=== PATIENT | male | born 1955 | race Two or more races ===

== ENCOUNTER 2016-07-28 12:02 | Inpatient (IN) | payer OTHER ==
[2016-07-28] VITALS (31 sets, daily range): BP systolic 66–124; BP diastolic 33–71
[~2016-07-28] VITALS: Ht 185.4 cm; Wt 97.5 kg
[~2016-07-28 12:02] MED LIST: ASPI81TA2 PO; FURO-145 PO; METH10TA2 PO; METO25TA6 PO; VALS40TA4 PO
[2016-07-28 12:25] LABS: MONOCYTES # (AUTO) 0.8 /CMM (0.1-1.30); RED BLOOD CELL COUNT(AUTO) 2.29 MIL/uL (4.5-6.0)
[2016-07-28] MEDS ORDERED: ONDANSETRON HCL/PF 4 MG/2 ML VIAL ONE (12:25)
[2016-07-28] MEDS ORDERED: OCTREOTIDE 100 MCG/ML VIAL ONE (12:25)
[2016-07-28] MEDS ORDERED: IV SET PRIMARY 1 EA INFUS.SET MC ONE (12:25)
[2016-07-28] MEDS ORDERED: SECONDARY IV SET 1 EA INFUS.SET MC ONE (12:25)
[2016-07-28] MEDS ORDERED: IV NS 0.9% 1,000 ML ONE (12:25)
[2016-07-28] MEDS ORDERED: CEFTRIAXONE 1GM BAG (ER ONLY) 50 ML IV ONE (12:25)
[2016-07-28 12:28] LABS: BASOPHILS # (AUTO) 0.3 /CMM (0.0-0.2); DIFF TOTAL % 100 %; EOSINOPHILS # (AUTO) 0.1 /CMM (0.0-0.7); EOSINOPHILS % (AUTO) 0.6 % (0.0-6.0); LYMPHOCYTES % (AUTO) 36.6 % (20.0-44.0); MEAN CORPUSCULAR HEMOGLOBIN 26 PG (26.0-33.0); MEAN CORPUSCULAR HGB CONC 31 g/dl (31.0-36.0); MEAN CORPUSCULAR VOLUME 83 fL (80-96); MONOCYTES % (AUTO) 6.1 % (2.0-12.0); NEUTROPHILS # (AUTO) 7.5 /CMM (1.8-8.9); NEUTROPHILS % (AUTO) 54.7 % (43.0-81.0); PLATELET COUNT (AUTO) 198 /CMM (150-450); WHITE BLOOD COUNT (AUTO) 13.7 K/uL (4.3-11.0)
[2016-07-28] MEDS ORDERED: OCTREOTIDE 1,250 MCG in IV NS 0.9% 250 ML IV ONE (12:30)
[2016-07-28] MEDS ORDERED: CEFTRIAXONE 1GM BAG (ER ONLY) 1 GM/50 ML PIGGYBACK IV ONE (12:30)
[2016-07-28] MEDS ORDERED: ONDANSETRON HCL/PF 4 MG/2 ML VIAL IVP ONE (12:30)
[2016-07-28] MEDS ORDERED: OCTREOTIDE 50 MCG/ML AMPUL IV ONE (12:30)
[2016-07-28] MEDS ORDERED: IV NS 0.9% 1,000 ML BAG IV ONE (12:30)
[2016-07-28 12:32] LABS: HEMATOCRIT 19 % (39-51); HEMOGLOBIN 5.9 g/dL (13.5-17.5)
[2016-07-28] MEDS ORDERED: VALS320T13 PO (12:35)
[2016-07-28] MEDS ORDERED: ALPR0.5T PO (12:35)
[2016-07-28] MEDS ORDERED: TRAM50TA2 PO (12:35)
[2016-07-28 12:37] LABS: CALCIUM, SERUM 7.8 mg/dL (8.5-10.1); POTASSIUM 5.8 mmol/L (3.5-5.1)
[2016-07-28 12:39] LABS: INR 1.47 (0.87-1.13); PROTHROMBIN TIME 15.4 SECS (9.5-12.7)
[2016-07-28 12:44] LABS: ALBUMIN 1.7 g/dL (3.4-5.0); BILIRUBIN,DIRECT 0.2 mg/dL (0.0-0.2); BILIRUBIN,TOTAL 0.6 mg/dL (0.2-1.0); INDIRECT BILIRUBIN 0.4 mg/dL (0.0-1.1); TOTAL PROTEIN, SERUM 5.4 g/dL (6.4-8.2)
[2016-07-28 12:48] LABS: TROPONIN I 0.036 ng/mL (0.00-0.056)
[2016-07-28] MEDS ORDERED: PANTOPRAZOLE 80 MG in IV NS 0.9% 500 ML IV PRN ×2 (13:00→15:30)
[2016-07-28 13:11] LABS: ANISOCYTOSIS 1+; HYPOCHROMASIA 1+; LYMPHOCYTES % (MANUAL) 29 % (16-48); PLATELET ESTIMATE ADEQUATE
[2016-07-28] MEDS ORDERED: IV NS 0.9% 1,000 ML IV ONE (13:30)
[2016-07-28] MEDS ORDERED: IV SET PRIMARY PUMP SET 1 EA INFUS.SET MC ONE ×2 (14:44→17:24)
[2016-07-28] MEDS ORDERED: BLOOD IV SET 1 EA INFUS.SET MC ONE (15:30)
[2016-07-28] MEDS ORDERED: OCTREOTIDE 1,250 MCG in IV NS 0.9% 247.5 ML IV PRN (15:30)
[2016-07-28] MEDS ORDERED: ACETAMINOPHEN 325 MG TABLET PO PRN (15:30)
[2016-07-28] MEDS ORDERED: ONDANSETRON HCL/PF 4 MG/2 ML VIAL IVP PRN (15:30)
[2016-07-28] MEDS ORDERED: IV NS 0.9% 250 ML IV ONE (15:31)
[2016-07-28] MEDS: PHYTONADIONE 5 MG TABLET PO SCH (16:00)
[2016-07-28] MEDS ORDERED: NOREPINEPHRINE 8 MG in IV D5W 500 ML IV PRN (16:30)
[2016-07-28] MEDS ORDERED: ALBUTEROL FS 2.5 MG/0.5 ML VIAL.NEB NEB ONE (16:30)
[2016-07-28] MEDS ORDERED: Calcium Gluconate 1GM/10ML 4.65 MEQ in IV D5W 50 ML IV ONE (16:30)
[2016-07-28] MEDS ORDERED: TRAMADOL HCL 50 MG TABLET PO PRN (16:30)
[2016-07-28] MEDS: ALPRAZOLAM 0.5 MG TABLET PO SCH (17:00)
[2016-07-28] MEDS ORDERED: FUROSEMIDE 20 MG/2 ML VIAL IV ONE (20:00)
[2016-07-28 20:16] LABS: THYROID STIMULATING HORMONE 1.662 uIU/mL (0.358-3.74)
[2016-07-28 23:53] LABS: BASOPHILS % (AUTO) 0.4 % (0.0-2.0); DIFF TOTAL % 100 %; EOSINOPHILS # (AUTO) 0.1 /CMM (0.0-0.7); HEMATOCRIT 21 % (39-51); LYMPHOCYTES # (AUTO) 4.3 /CMM (0.8-4.8); LYMPHOCYTES % (AUTO) 34.8 % (20.0-44.0); MEAN CORPUSCULAR HEMOGLOBIN 27 PG (26.0-33.0); MEAN CORPUSCULAR HGB CONC 32 g/dl (31.0-36.0); MEAN CORPUSCULAR VOLUME 83 fL (80-96); MONOCYTES # (AUTO) 1.1 /CMM (0.1-1.30); MONOCYTES % (AUTO) 9.3 % (2.0-12.0); NEUTROPHILS # (AUTO) 6.7 /CMM (1.8-8.9); NEUTROPHILS % (AUTO) 54.5 % (43.0-81.0); PLATELET COUNT (AUTO) 163 /CMM (150-450); RED BLOOD CELL COUNT(AUTO) 2.58 MIL/uL (4.5-6.0); WHITE BLOOD COUNT (AUTO) 12.3 K/uL (4.3-11.0)
[2016-07-29] VITALS (47 sets, daily range): BP systolic 109–168; BP diastolic 57–77
[2016-07-29] LABS: HEMOGLOBIN 6.9 g/dL (13.5-17.5)
[2016-07-29 00:01] LABS: CALCIUM, SERUM 7.5 mg/dL (8.5-10.1); CREATININE 1.2 mg/dL (0.6-1.3); POTASSIUM 4.5 mmol/L (3.5-5.1)
[2016-07-29] MEDS ORDERED: BLOOD IV SET 1 EA INFUS.SET MC ONE ×3 (01:09→16:36)
[2016-07-29] MEDS ORDERED: IV NS 0.9% 250 ML IV ONE ×3 (01:10→16:40)
[2016-07-29 01:11] LABS: ANISOCYTOSIS 1+; BASOPHILS % (MANUAL) 0 % (0.0-2.0); EOSINOPHILS % (MANUAL) 1 % (0-4); HYPOCHROMASIA 1+; LYMPHOCYTES % (MANUAL) 34 % (16-48); PLATELET ESTIMATE ADEQUATE
[2016-07-29] MEDS ORDERED: IV NS 0.9% 250 ML IV PRN (01:30)
[2016-07-29] MEDS ORDERED: CEFTRIAXONE 1 G VIAL IM SCH (06:00)
[2016-07-29] MEDS ORDERED: CT SWABBABLE VALVE TRANS SET 1 EA INFUS.SET MC ONE (09:02)
[2016-07-29] MEDS ORDERED: IOHEXOL-300 100 ML VIAL IV ONE (09:02)
[2016-07-29] MEDS ORDERED: IV SET PRIMARY PUMP SET 1 EA INFUS.SET MC ONE (09:51)
[2016-07-29] MEDS: ALPRAZOLAM 0.5 MG TABLET PO SCH ×2 (09:54→16:40)
[2016-07-29] MEDS: NICOTINE PATCH (21MG) 21 MG PATCH.TD24 TD SCH (09:54)
[2016-07-29] MEDS: PHYTONADIONE 5 MG TABLET PO SCH ×2 (09:54→09:58)
[2016-07-29] MEDS: MULTIVITAMINS,THERAPEUTIC 1 UDTAB TABLET PO SCH (09:54)
[2016-07-29] MEDS ORDERED: SECONDARY IV SET 1 EA INFUS.SET MC ONE ×3 (10:27→13:43)
[2016-07-29] MEDS: Thiamine 100 MG in IV D5W 50 ML IV SCH (10:31)
[2016-07-29] MEDS: IV NS 0.9% 1,000 ML IV PRN (11:14)
[2016-07-29] MEDS ORDERED: Z GUARD REMEDY 2 OZ OINT TP PRN (11:30)
[2016-07-29 11:39] LABS: BASOPHILS % (AUTO) 0.4 % (0.0-2.0); DIFF TOTAL % 100 %; EOSINOPHILS # (AUTO) 0.2 /CMM (0.0-0.7); EOSINOPHILS % (AUTO) 1.6 % (0.0-6.0); HEMATOCRIT 26 % (39-51); HEMOGLOBIN 8.4 g/dL (13.5-17.5); LYMPHOCYTES # (AUTO) 3.7 /CMM (0.8-4.8); LYMPHOCYTES % (AUTO) 32.2 % (20.0-44.0); MEAN CORPUSCULAR HEMOGLOBIN 27 PG (26.0-33.0); MEAN CORPUSCULAR HGB CONC 32 g/dl (31.0-36.0); MEAN CORPUSCULAR VOLUME 84 fL (80-96); MONOCYTES # (AUTO) 0.9 /CMM (0.1-1.30); MONOCYTES % (AUTO) 7.6 % (2.0-12.0); NEUTROPHILS # (AUTO) 6.7 /CMM (1.8-8.9); NEUTROPHILS % (AUTO) 58.2 % (43.0-81.0); PLATELET COUNT (AUTO) 135 /CMM (150-450); RED BLOOD CELL COUNT(AUTO) 3.09 MIL/uL (4.5-6.0); WHITE BLOOD COUNT (AUTO) 11.5 K/uL (4.3-11.0)
[2016-07-29 11:50] LABS: ALBUMIN 1.9 g/dL (3.4-5.0); BILIRUBIN,TOTAL 0.9 mg/dL (0.2-1.0); CALCIUM, SERUM 7.5 mg/dL (8.5-10.1); CREATININE 1.1 mg/dL (0.6-1.3); PHOSPHORUS 3.6 mg/dL (2.5-4.9); POTASSIUM 3.9 mmol/L (3.5-5.1); TOTAL PROTEIN, SERUM 5.4 g/dL (6.4-8.2)
[2016-07-29 11:55] LABS: INR 1.4 (0.87-1.13); PROTHROMBIN TIME 15.2 SECS (9.5-12.7)
[2016-07-29] MEDS ORDERED: PEG 3350/NA SULF,BICARB,CL/KCL 4,000 ML BOTTLE PO ONE ×2 (12:00→20:30)
[2016-07-29] MEDS: CEFTRIAXONE 1 G in IV D5W 50 ML IV SCH (12:19)
[2016-07-29] MEDS: Z GUARD REMEDY 2 OZ OINT TP SCH ×2 (13:04→16:36)
[2016-07-29] MEDS: HYDROGEL DRESSING 90 GM TUBE TP SCH (13:04)
[2016-07-29] MEDS: Magnesium 1GM/D5W 100ML PREMIX 100 ML IV SCH ×2 (13:48→14:56)
[2016-07-29] MEDS ORDERED: Magnesium 1GM/D5W 100ML PREMIX PIGGYBACK IV ONE (14:00)
[2016-07-29] MEDS: FOLIC ACID 1 MG TABLET PO SCH (16:28)
[2016-07-29] MEDS: PANTOPRAZOLE 40 MG VIAL IV SCH (16:28)
[2016-07-29] MEDS: CYANOCOBALAMIN 1,000 MCG/ML VIAL IM SCH (16:28)
[2016-07-29] MEDS: NEOMY SULF/BACITRAC ZN/POLY 15 GM TUBE TP SCH (16:36)
[2016-07-30] VITALS (56 sets, daily range): BP systolic 101–142; BP diastolic 56–85
[2016-07-30] MEDS ORDERED: BLOOD IV SET 1 EA INFUS.SET MC ONE ×3 (01:09→20:17)
[2016-07-30 05:58] LABS: BASOPHILS # (AUTO) 0.1 /CMM (0.0-0.2); BASOPHILS % (AUTO) 2.2 % (0.0-2.0); DIFF TOTAL % 100 %; EOSINOPHILS # (AUTO) 0.2 /CMM (0.0-0.7); EOSINOPHILS % (AUTO) 3.6 % (0.0-6.0); HEMATOCRIT 23 % (39-51); HEMOGLOBIN 7.6 g/dL (13.5-17.5); LYMPHOCYTES # (AUTO) 2.2 /CMM (0.8-4.8); LYMPHOCYTES % (AUTO) 36.7 % (20.0-44.0); MEAN CORPUSCULAR HEMOGLOBIN 28 PG (26.0-33.0); MEAN CORPUSCULAR HGB CONC 33 g/dl (31.0-36.0); MEAN CORPUSCULAR VOLUME 85 fL (80-96); MONOCYTES # (AUTO) 0.6 /CMM (0.1-1.30); MONOCYTES % (AUTO) 9.5 % (2.0-12.0); NEUTROPHILS # (AUTO) 2.9 /CMM (1.8-8.9); PLATELET COUNT (AUTO) 103 /CMM (150-450); RED BLOOD CELL COUNT(AUTO) 2.71 MIL/uL (4.5-6.0); WHITE BLOOD COUNT (AUTO) 6.1 K/uL (4.3-11.0)
[2016-07-30 06:00] LABS: POTASSIUM 3.4 mmol/L (3.5-5.1)
[2016-07-30 06:03] LABS: INR 1.24 (0.87-1.13); PROTHROMBIN TIME 13.4 SECS (9.5-12.7)
[2016-07-30] MEDS: HYDROGEL DRESSING 90 GM TUBE TP SCH (08:34)
[2016-07-30] MEDS: Z GUARD REMEDY 2 OZ OINT TP SCH ×2 (08:34→16:53)
[2016-07-30] MEDS: NEOMY SULF/BACITRAC ZN/POLY 15 GM TUBE TP SCH ×2 (08:35→17:02)
[2016-07-30] MEDS: NICOTINE PATCH (21MG) 21 MG PATCH.TD24 TD SCH (08:37)
[2016-07-30] MEDS: PANTOPRAZOLE 40 MG VIAL IV SCH (08:37)
[2016-07-30] MEDS: CYANOCOBALAMIN 1,000 MCG/ML VIAL IM SCH (08:37)
[2016-07-30] MEDS: MULTIVITAMINS,THERAPEUTIC 1 UDTAB TABLET PO SCH (08:37)
[2016-07-30] MEDS: ALPRAZOLAM 0.5 MG TABLET PO SCH ×2 (08:37→17:02)
[2016-07-30] MEDS: FOLIC ACID 1 MG TABLET PO SCH (08:39)
[2016-07-30] MEDS: PHYTONADIONE 5 MG TABLET PO SCH (09:18)
[2016-07-30] MEDS: Thiamine 100 MG in IV D5W 50 ML IV SCH (10:27)
[2016-07-30 11:54] LABS: HEMOGLOBIN 7.3 g/dL (13.5-17.5)
[2016-07-30] MEDS ORDERED: IV NS 0.9% 250 ML IV ONE (13:40)
[2016-07-30] MEDS ORDERED: SECONDARY IV SET 1 EA INFUS.SET MC ONE (13:42)
[2016-07-30] MEDS: POTASSIUM CL. PREMIX PERIPHER. 50 ML IV SCH ×2 (13:48→15:41)
[2016-07-30] MEDS: CEFTRIAXONE 1 G in IV D5W 50 ML IV SCH (13:48)
[2016-07-31] VITALS (21 sets, daily range): BP systolic 113–150; BP diastolic 68–86
[2016-07-31 01:42] LABS: HEMOGLOBIN 10.5 g/dL (13.5-17.5)
[2016-07-31 04:59] LABS: BASOPHILS % (AUTO) 0.4 % (0.0-2.0); DIFF TOTAL % 100 %; EOSINOPHILS # (AUTO) 0.3 /CMM (0.0-0.7); EOSINOPHILS % (AUTO) 4.7 % (0.0-6.0); HEMATOCRIT 30 % (39-51); HEMOGLOBIN 10.1 g/dL (13.5-17.5); LYMPHOCYTES # (AUTO) 1.6 /CMM (0.8-4.8); LYMPHOCYTES % (AUTO) 26.9 % (20.0-44.0); MEAN CORPUSCULAR HEMOGLOBIN 29 PG (26.0-33.0); MEAN CORPUSCULAR HGB CONC 33 g/dl (31.0-36.0); MEAN CORPUSCULAR VOLUME 87 fL (80-96); MONOCYTES # (AUTO) 0.4 /CMM (0.1-1.30); MONOCYTES % (AUTO) 7.5 % (2.0-12.0); NEUTROPHILS # (AUTO) 3.5 /CMM (1.8-8.9); NEUTROPHILS % (AUTO) 60.5 % (43.0-81.0); PLATELET COUNT (AUTO) 103 /CMM (150-450); RED BLOOD CELL COUNT(AUTO) 3.48 MIL/uL (4.5-6.0); WHITE BLOOD COUNT (AUTO) 5.8 K/uL (4.3-11.0)
[2016-07-31 05:16] LABS: CREATININE 0.8 mg/dL (0.6-1.3); POTASSIUM 3.6 mmol/L (3.5-5.1)
[2016-07-31 05:18] LABS: INR 1.29 (0.87-1.13)
[2016-07-31] MEDS: CYANOCOBALAMIN 1,000 MCG/ML VIAL IM SCH (08:05)
[2016-07-31] MEDS: Z GUARD REMEDY 2 OZ OINT TP SCH ×2 (08:06→16:12)
[2016-07-31] MEDS: PANTOPRAZOLE 40 MG VIAL IV SCH (08:06)
[2016-07-31] MEDS: NICOTINE PATCH (21MG) 21 MG PATCH.TD24 TD SCH (08:06)
[2016-07-31] MEDS: ALPRAZOLAM 0.5 MG TABLET PO SCH ×2 (08:06→16:11)
[2016-07-31] MEDS: MULTIVITAMINS,THERAPEUTIC 1 UDTAB TABLET PO SCH (08:06)
[2016-07-31] MEDS: HYDROGEL DRESSING 90 GM TUBE TP SCH (08:06)
[2016-07-31] MEDS: FOLIC ACID 1 MG TABLET PO SCH (08:06)
[2016-07-31] MEDS: NEOMY SULF/BACITRAC ZN/POLY 15 GM TUBE TP SCH ×2 (08:06→16:12)
[2016-07-31] MEDS: IV NS 0.9% 1,000 ML IV PRN (08:09)
[2016-07-31] MEDS: THIAMINE HCL 100 MG TABLET PO SCH (09:41)
[2016-07-31] MEDS ORDERED: POTASSIUM CHLORIDE 20 MEQ TAB.PRT.SR PO ONE (16:00)
[2016-07-31] MEDS ORDERED: PEG 3350/NA SULF,BICARB,CL/KCL 4,000 ML BOTTLE PO ONE (20:00)
[2016-08-01] VITALS: BP 159/88
[2016-08-01] MEDS: LORAZEPAM INJ 2 MG/ML VIAL IV PRN ×2 (00:51→22:53)
[2016-08-01] MEDS: IV NS 0.9% 1,000 ML IV PRN (01:03)
[2016-08-01 04:00] VITALS: BP 156/83
[2016-08-01 06:59] LABS: BASOPHILS % (AUTO) 0.4 % (0.0-2.0); DIFF TOTAL % 100 %; EOSINOPHILS # (AUTO) 0.4 /CMM (0.0-0.7); EOSINOPHILS % (AUTO) 6.3 % (0.0-6.0); HEMATOCRIT 35 % (39-51); HEMOGLOBIN 11.4 g/dL (13.5-17.5); LYMPHOCYTES # (AUTO) 1.7 /CMM (0.8-4.8); LYMPHOCYTES % (AUTO) 30.3 % (20.0-44.0); MEAN CORPUSCULAR HEMOGLOBIN 29 PG (26.0-33.0); MEAN CORPUSCULAR HGB CONC 33 g/dl (31.0-36.0); MEAN CORPUSCULAR VOLUME 87 fL (80-96); MONOCYTES # (AUTO) 0.5 /CMM (0.1-1.30); MONOCYTES % (AUTO) 8.7 % (2.0-12.0); NEUTROPHILS # (AUTO) 3.1 /CMM (1.8-8.9); NEUTROPHILS % (AUTO) 54.3 % (43.0-81.0); PLATELET COUNT (AUTO) 103 /CMM (150-450); RED BLOOD CELL COUNT(AUTO) 3.96 MIL/uL (4.5-6.0); WHITE BLOOD COUNT (AUTO) 5.6 K/uL (4.3-11.0)
[2016-08-01 07:09] LABS: CALCIUM, SERUM 8.2 mg/dL (8.5-10.1); CREATININE 0.8 mg/dL (0.6-1.3); POTASSIUM 3.4 mmol/L (3.5-5.1)
[2016-08-01 08:00] VITALS: BP 147/84
[2016-08-01 10:40] VITALS: BP 145/80
[2016-08-01] MEDS: ALPRAZOLAM 0.5 MG TABLET PO SCH ×2 (10:47→17:01)
[2016-08-01] MEDS: CYANOCOBALAMIN 1,000 MCG/ML VIAL IM SCH (10:47)
[2016-08-01] MEDS: THIAMINE HCL 100 MG TABLET PO SCH (10:47)
[2016-08-01] MEDS: PANTOPRAZOLE 40 MG VIAL IV SCH (10:47)
[2016-08-01] MEDS: MULTIVITAMINS,THERAPEUTIC 1 UDTAB TABLET PO SCH (10:47)
[2016-08-01] MEDS: FOLIC ACID 1 MG TABLET PO SCH (10:47)
[2016-08-01] MEDS: NICOTINE PATCH (21MG) 21 MG PATCH.TD24 TD SCH (10:47)
[2016-08-01] MEDS: NEOMY SULF/BACITRAC ZN/POLY 15 GM TUBE TP SCH ×2 (10:48→17:02)
[2016-08-01] MEDS: Z GUARD REMEDY 2 OZ OINT TP SCH ×2 (10:48→17:02)
[2016-08-01] MEDS: HYDROGEL DRESSING 90 GM TUBE TP SCH (10:48)
[2016-08-01] MEDS ORDERED: POTASSIUM CHLORIDE 20 MEQ TAB.PRT.SR PO SCH (11:30)
[2016-08-01 15:41] LABS: IRON, SERUM 28 ug/dl (50-175); PERCENT SATURATION 8 % (14-33); TOTAL IRON BINDING CAPACITY 372 ug/dl (250-450)
[2016-08-01 16:00] VITALS: BP 139/69
[2016-08-01 20:00] VITALS: BP 140/83
[2016-08-02 04:00] VITALS: BP 143/83
[2016-08-02 07:19] LABS: BASOPHILS % (AUTO) 0.4 % (0.0-2.0); DIFF TOTAL % 100 %; EOSINOPHILS # (AUTO) 0.3 /CMM (0.0-0.7); EOSINOPHILS % (AUTO) 3.7 % (0.0-6.0); HEMATOCRIT 33 % (39-51); MEAN CORPUSCULAR HEMOGLOBIN 29 PG (26.0-33.0); MEAN CORPUSCULAR HGB CONC 33 g/dl (31.0-36.0); MEAN CORPUSCULAR VOLUME 87 fL (80-96); MONOCYTES # (AUTO) 0.6 /CMM (0.1-1.30); MONOCYTES % (AUTO) 8.2 % (2.0-12.0); NEUTROPHILS # (AUTO) 4.5 /CMM (1.8-8.9); NEUTROPHILS % (AUTO) 60.7 % (43.0-81.0); PLATELET COUNT (AUTO) 107 /CMM (150-450); RED BLOOD CELL COUNT(AUTO) 3.83 MIL/uL (4.5-6.0); WHITE BLOOD COUNT (AUTO) 7.4 K/uL (4.3-11.0)
[2016-08-02 08:00] VITALS: BP 122/59
[2016-08-02 08:01] LABS: CALCIUM, SERUM 8.3 mg/dL (8.5-10.1); CREATININE 0.7 mg/dL (0.6-1.3); POTASSIUM 3.5 mmol/L (3.5-5.1)
[2016-08-02] MEDS: NICOTINE PATCH (21MG) 21 MG PATCH.TD24 TD SCH (09:09)
[2016-08-02] MEDS: MULTIVITAMINS,THERAPEUTIC 1 UDTAB TABLET PO SCH (09:09)
[2016-08-02] MEDS: THIAMINE HCL 100 MG TABLET PO SCH (09:09)
[2016-08-02] MEDS: ALPRAZOLAM 0.5 MG TABLET PO SCH ×2 (09:09→16:55)
[2016-08-02] MEDS: FOLIC ACID 1 MG TABLET PO SCH (09:09)
[2016-08-02] MEDS: PANTOPRAZOLE 40 MG VIAL IV SCH (09:09)
[2016-08-02] MEDS: CYANOCOBALAMIN 1,000 MCG/ML VIAL IM SCH (09:09)
[2016-08-02] MEDS: NEOMY SULF/BACITRAC ZN/POLY 15 GM TUBE TP SCH ×2 (09:10→16:55)
[2016-08-02] MEDS: HYDROGEL DRESSING 90 GM TUBE TP SCH (09:10)
[2016-08-02] MEDS: Z GUARD REMEDY 2 OZ OINT TP SCH ×2 (09:10→16:56)
[2016-08-02] MEDS ORDERED: SOD FERRIC GLUC 125 MG in IV NS 0.9% 100 ML IV SCH (14:00)
[2016-08-02] MEDS ORDERED: SECONDARY IV SET 1 EA INFUS.SET MC ONE (14:14)
[2016-08-02 16:00] VITALS: BP 116/63
[2016-08-02 20:00] VITALS: BP 140/93
[2016-08-03] MEDS: LORAZEPAM INJ 2 MG/ML VIAL IV PRN (01:23)
[2016-08-03 04:00] VITALS: BP 125/74
[2016-08-03 06:35] LABS: BASOPHILS % (AUTO) 0.4 % (0.0-2.0); DIFF TOTAL % 100 %; EOSINOPHILS # (AUTO) 0.3 /CMM (0.0-0.7); EOSINOPHILS % (AUTO) 3.3 % (0.0-6.0); HEMATOCRIT 34 % (39-51); HEMOGLOBIN 11.3 g/dL (13.5-17.5); LYMPHOCYTES # (AUTO) 2.6 /CMM (0.8-4.8); LYMPHOCYTES % (AUTO) 32.5 % (20.0-44.0); MEAN CORPUSCULAR HEMOGLOBIN 28 PG (26.0-33.0); MEAN CORPUSCULAR HGB CONC 33 g/dl (31.0-36.0); MEAN CORPUSCULAR VOLUME 86 fL (80-96); MONOCYTES # (AUTO) 0.7 /CMM (0.1-1.30); NEUTROPHILS # (AUTO) 4.4 /CMM (1.8-8.9); NEUTROPHILS % (AUTO) 54.8 % (43.0-81.0); PLATELET COUNT (AUTO) 121 /CMM (150-450); RED BLOOD CELL COUNT(AUTO) 3.99 MIL/uL (4.5-6.0); WHITE BLOOD COUNT (AUTO) 8.1 K/uL (4.3-11.0)
[2016-08-03 07:04] LABS: CALCIUM, SERUM 8.5 mg/dL (8.5-10.1); CREATININE 0.8 mg/dL (0.6-1.3); POTASSIUM 3.5 mmol/L (3.5-5.1)
[2016-08-03 08:00] VITALS: BP 147/81
[2016-08-03] MEDS: ALPRAZOLAM 0.5 MG TABLET PO SCH (09:14)
[2016-08-03] MEDS: FOLIC ACID 1 MG TABLET PO SCH (09:14)
[2016-08-03] MEDS: THIAMINE HCL 100 MG TABLET PO SCH (09:14)
[2016-08-03] MEDS: MULTIVITAMINS,THERAPEUTIC 1 UDTAB TABLET PO SCH (09:14)
[2016-08-03] MEDS: PANTOPRAZOLE 40 MG VIAL IV SCH (09:14)
[2016-08-03] MEDS: CYANOCOBALAMIN 1,000 MCG/ML VIAL IM SCH (09:14)
[2016-08-03] MEDS: NICOTINE PATCH (21MG) 21 MG PATCH.TD24 TD SCH (09:14)
[2016-08-03] MEDS: NEOMY SULF/BACITRAC ZN/POLY 15 GM TUBE TP SCH (09:16)
[2016-08-03] MEDS: Z GUARD REMEDY 2 OZ OINT TP SCH (09:16)
[2016-08-03] MEDS: HYDROGEL DRESSING 90 GM TUBE TP SCH (09:16)
== END 2016-08-03 13:23 | disposition home or self-care (01) | DRG 197 ==
LOC: ER 12:05 → ICU 14:53 → TELE-TD 07-31 10:26 → MEDSG1 08-01 09:10
PROVIDERS: ADMIT Internal Medicine; ATTEND Internal Medicine
PROC: 30233N1 Transfusion of Nonautologous Red Blood Cells into Peripheral Vein, Percutaneous Approach (ICD-10-PCS; principal; 2016-07-28)
PROC: 0JB00ZZ Excision of Scalp Subcutaneous Tissue and Fascia, Open Approach (ICD-10-PCS; 2016-07-29)
PROC: 0DJ08ZZ Inspection of Upper Intestinal Tract, Via Natural or Artificial Opening Endoscopic (ICD-10-PCS; 2016-07-29)
PROC: B546ZZA Ultrasonography of Right Subclavian Vein, Guidance (ICD-10-PCS; 2016-07-29)
PROC: 30233K1 Transfusion of Nonautologous Frozen Plasma into Peripheral Vein, Percutaneous Approach (ICD-10-PCS; 2016-07-29)
PROC: 05H533Z Insertion of Infusion Device into Right Subclavian Vein, Percutaneous Approach (ICD-10-PCS; 2016-07-29)
PROC: 05H633Z Insertion of Infusion Device into Left Subclavian Vein, Percutaneous Approach (ICD-10-PCS; 2016-07-30)
PROC: B547ZZA Ultrasonography of Left Subclavian Vein, Guidance (ICD-10-PCS; 2016-07-30)
PROC: 0DJD8ZZ Inspection of Lower Intestinal Tract, Via Natural or Artificial Opening Endoscopic (ICD-10-PCS; 2016-08-01)
DX: I86.4 Gastric varices (principal); N17.0 Acute kidney failure with tubular necrosis; J69.0 Pneumonitis due to inhalation of food and vomit; G93.41 Metabolic encephalopathy; E43 Unspecified severe protein-calorie malnutrition; K76.6 Portal hypertension; D61.818 Other pancytopenia; D68.4 Acquired coagulation factor deficiency; K92.2 Gastrointestinal hemorrhage, unspecified; K70.10 Alcoholic hepatitis without ascites; D69.59 Other secondary thrombocytopenia; K70.30 Alcoholic cirrhosis of liver without ascites; E83.42 Hypomagnesemia; E83.51 Hypocalcemia; E87.5 Hyperkalemia; K21.9 Gastro-esophageal reflux disease without esophagitis; F41.9 Anxiety disorder, unspecified; K80.20 Calculus of gallbladder without cholecystitis without obstruction; F10.20 Alcohol dependence, uncomplicated; S01.00XA Unspecified open wound of scalp, initial encounter; I10 Essential (primary) hypertension; E78.5 Hyperlipidemia, unspecified; J44.9 Chronic obstructive pulmonary disease, unspecified; F17.210 Nicotine dependence, cigarettes, uncomplicated; F11.20 Opioid dependence, uncomplicated; D73.1 Hypersplenism; K43.9 Ventral hernia without obstruction or gangrene; K40.90 Unilateral inguinal hernia, without obstruction or gangrene, not specified as recurrent; K52.9 Noninfective gastroenteritis and colitis, unspecified; K29.80 Duodenitis without bleeding; E53.8 Deficiency of other specified B group vitamins; I87.2 Venous insufficiency (chronic) (peripheral); K64.8 Other hemorrhoids
CPT/HCPCS: 36415; 36569; 71010-TC; 80048-TC; 80053-TC; 80076-TC; 82105; 82728-TC; 82746; 83540-TC; 83690-TC; 83735-TC; 84100-TC; 84155; 84165; 84439-TC; 84443-TC; 84484-TC; 85025-TC; 85027-TC; 85045-TC; 85610-TC; 85730-TC; 86850-TC; 86921-TC; 87081-TC; A4606; A6248; A6402; A6403; C1751; C9113; J0610; J0696; J1940; J2060; J2354; J2405; J2916; J3411; J3420; J3475; J3480; J7030; J7040; J7050; J7060; P9016-BL; P9017-BL; Q9967; Z7610

== ENCOUNTER 2016-09-27 22:20 | Inpatient (IN) | payer OTHER ==
[~2016-09-27] VITALS: Ht 172.7 cm; Wt 99.9 kg
[~2016-09-27 22:20] MED LIST changes: +ALPR0.5T PO; -ASPI81TA2 PO; -METH10TA2 PO; -METO25TA6 PO; +TRAM50TA2 PO; +VALS320T13 PO; -VALS40TA4 PO
[2016-09-27] MEDS ORDERED: IV NS 0.9% 500 ML BAG IV ONE (22:30)
--- NOTE | 2016-09-27 22:30 | NUR ---
TO BED 4 BIB PARAMEDICS DUE TO CALLED TO HAVE PT'S STOMACH CHECKED OUT PER EMS REPORT. PT DENIES ANY MEDICAL COMPLAINTS, NOTED ETOH SMELL ON BREATH. PT REPORT TAKING 2 SHOT OF VODKA. PT AAOX4 NO ACUTE DISTRESS NOTED, RESP EVEN AND UNLABORED. PLACE PT ON CARDIAC MONITORING, CONTINUOUS POX. ER MD AT BEDSIDE TO EVAL PT WITH ORDERS RECEIVED. WILL CARRY OUT ORDER.
[2016-09-27] MEDS ORDERED: IV NS 0.9% 500 ML IV ONE (22:40)
[2016-09-27] MEDS ORDERED: IV SET PRIMARY 1 EA INFUS.SET MC ONE (22:40)
--- NOTE | 2016-09-27 22:40 | NUR ---
STARTED SL 16G TO L WRIST, BLOOD DRAWN AND SENT TO LAB.
[2016-09-27 22:47] LABS: BASOPHILS % (AUTO) 0.3 % (0.0-2.0); EOSINOPHILS # (AUTO) 0.2 /CMM (0.0-0.7); EOSINOPHILS % (AUTO) 3.3 % (0.0-6.0); HEMATOCRIT 24 % (39-51); HEMOGLOBIN 7.7 g/dL (13.5-17.5); LYMPHOCYTES # (AUTO) 1.7 /CMM (0.8-4.8); MEAN CORPUSCULAR HEMOGLOBIN 27 PG (26.0-33.0); MEAN CORPUSCULAR HGB CONC 32 g/dl (31.0-36.0); MEAN CORPUSCULAR VOLUME 85 fL (80-96); MONOCYTES # (AUTO) 0.9 /CMM (0.1-1.30); NEUTROPHILS # (AUTO) 3.8 /CMM (1.8-8.9); NEUTROPHILS % (AUTO) 57.4 % (43.0-81.0); PLATELET COUNT (AUTO) 127 /CMM (150-450); RED BLOOD CELL COUNT(AUTO) 2.88 MIL/uL (4.5-6.0); WHITE BLOOD COUNT (AUTO) 6.6 K/uL (4.3-11.0)
--- NOTE | 2016-09-27 22:51 | NUR ---
PT TRANSPORTED TO RADIOLOGY FOR CT HEAD.
[2016-09-27 22:59] LABS: CALCIUM, SERUM 8.1 mg/dL (8.5-10.1); CARBON DIOXIDE 23 mmol/L (21-32); CHLORIDE 112 mmol/L (98-107); CREATININE 0.9 mg/dL (0.6-1.3); GFR 86 mL/min (>60); GLUCOSE 132 mg/dL (74-106); POTASSIUM 3.9 mmol/L (3.5-5.1); SODIUM SERUM 146 mmol/L (136-145); UREA NITROGEN, BLOOD 8 mg/dL (7-18)
[2016-09-27 23:02] LABS: INR 1.17 (0.87-1.13); PROTHROMBIN TIME 12.7 SECS (9.5-12.7)
[2016-09-27 23:04] LABS: TROPONIN I < 0.017 ng/mL (0.00-0.056)
[2016-09-27 23:10] LABS: EOSINOPHILS % (MANUAL) 5 % (0-4); LYMPHOCYTES % (MANUAL) 20 % (16-48); MONOCYTES % (MANUAL) 10 % (0-11.0); NEUTROPHILS % (MANUAL) 65 (42-76)
[2016-09-27 23:11] LABS: PLATELET ESTIMATE ADEQUATE
[2016-09-27 23:12] LABS: ALANINE AMINOTRANSFERASE 26 U/L (12-78); ALBUMIN 2.5 g/dL (3.4-5.0); ALCOHOL, BLOOD 110 mg/dL (0-0); ALKALINE PHOSPHATASE 112 U/L (46-116); ASPARTATE AMINOTRANSFERASE 37 U/L (15-37); BILIRUBIN,DIRECT 0.3 mg/dL (0.0-0.2); BILIRUBIN,TOTAL 0.5 mg/dL (0.2-1.0); SALICYLATE < 0.2 mg/dL (2.8-20.0); TOTAL PROTEIN, SERUM 7.2 g/dL (6.4-8.2)
[2016-09-27 23:13] LABS: ACETAMINOPHEN 0 ug/ml (10-30)
--- NOTE | 2016-09-27 23:15 | NUR ---
PT BACK FROM RADIOLOGY. PENDNG CT HEAD RESULT.
[2016-09-27 23:24] LABS: LACTIC ACID 3.7 mmol/L (0.4-2.0)
[2016-09-28] VITALS (13 sets, daily range): BP systolic 115–153; BP diastolic 67–89
[2016-09-28] MEDS ORDERED: IV 1/2NS 1000 ML 1,000 ML IV PRN (00:48)
--- NOTE | 2016-09-28 00:54 | NUR ---
ER TALKING TO DR. FERNANDO REGARDING PT ADMISSION. WILL TRANSPORT PT VIA ACLS PROTOCOL.
[2016-09-28] MEDS ORDERED: ONDANSETRON HCL/PF 4 MG/2 ML VIAL IVP PRN (01:00)
[2016-09-28] MEDS ORDERED: ZOLPIDEM TARTRATE 5 MG TABLET PO PRN (01:00)
[2016-09-28] MEDS ORDERED: Z GUARD REMEDY 2 OZ OINT TP PRN (01:00)
[2016-09-28] MEDS ORDERED: ACETAMINOPHEN 325 MG TABLET PO PRN (01:00)
--- NOTE | 2016-09-28 01:15 | NUR ---
PT TRANSPORTED TO / ROOM #316.
--- NOTE | 2016-09-28 01:15 | NUR ---
MS/RN NOTES RECEIVED PT. FROM ER VIA SHEFALI. PT. IS AWAKE, ALERT AND ORIENTED TO SELF. PT. IS CONFUSED. BREATHING EVEN AND UNLABORED ON ROOM AIR. NO SOB, RESPIRATORY DISTRESS OR COMPLAINTS OF PAIN NOTED AT THIS TIME. ORIENTED PT. TO ROOM. PT. WITH LEFT WRIST 16 GAUGE IV SALINE LOCK PRESENT, PATENT AND INTACT. BED IN LOWEST POSITION, CALL LIGHT WITHIN REACH, WILL CONTINUE TO MONITOR.
--- NOTE | 2016-09-28 02:14 | NUR ---
MS/RN NOTES NOTIFIED MD FRITZ PT. LACTIC ACID IS TRENDING DOWN CURRENT IS 3.4 PREVIOUS LACTIC ACID IN ER WAS 3.7 PT. RECEIVED 500ML NS BOLUS IN ER. PT. VITAL SIGNS STABLE. PER MD FRITZ NO NEW ORDERS, NO NEED TO PERFORM SEPSIS PROTOCOL. WILL CONTINUE TO MONITOR.
[2016-09-28] MEDS ORDERED: PANTOPRAZOLE 40 MG VIAL ONE (02:16)
[2016-09-28] MEDS ORDERED: IV 1/2NS 1000 ML 1,000 ML IV ONE (02:19)
[2016-09-28] MEDS ORDERED: IV SET PRIMARY PUMP SET 1 EA INFUS.SET MC ONE (02:19)
[2016-09-28] MEDS: PANTOPRAZOLE 40 MG VIAL IV SCH ×3 (02:28→17:03)
--- NOTE | 2016-09-28 06:54 | NUR ---
MS/RN NOTES PT. LYING IN BED RESTING. BREATHING EVEN AND UNLABORED ON ROOM AIR. NO SOB, RESPIRATORY DISTRESS OR COMPLAINTS OF PAIN NOTED AT THIS TIME. PT. WITH LEFT WRIST 16 GAUGE PERIPHERAL IV PRESENT, PATENT AND INTACT ADMINISTERING TO PT. 1/2 NS @ 75ML/HR. ALL PT. NEEDS MET. BED IN LOWEST POSITION, CALL LIGHT WITHIN REACH, WILL ENDORSE TO DAYSHIFT NURSE FOR CONTINUITY OF CARE.
--- NOTE | 2016-09-28 08:00 | NUR ---
MS RN NOTES RECIEVD PATIENT ASLEEP ON BED EASILY AROUSABLE. BREATHING EVEN AND NON LABORED. NO S/S OF ANY RESPIRATORY DISTRESS OR SOB NOTED. WITH DRESSING ON HIS SCALP DRY AND INTACT. WITH IVF'S ON PROGRESS ON HIS LT WRIST #16 INTACT AND PATENT. CALL LIGHT WITHIN REACH, BED IN LOW POSITION FOR SAFETY MEASURES. WILL CONTINUE TO MONITOR.
[2016-09-28] MEDS: ALPRAZOLAM 0.5 MG TABLET PO SCH ×2 (08:46→17:03)
[2016-09-28] MEDS: VALSARTAN 80 MG TABLET PO SCH (08:51)
--- NOTE | 2016-09-28 09:00 | NUR ---
MS RN NOTES S/B DR. CARRENO WITH NEW ORDERS MADE AND CARRIED OUT.
[2016-09-28 09:16] LABS: BASOPHILS % (AUTO) 0.3 % (0.0-2.0); EOSINOPHILS # (AUTO) 0.1 /CMM (0.0-0.7); EOSINOPHILS % (AUTO) 3.6 % (0.0-6.0); HEMATOCRIT 21 % (39-51); LYMPHOCYTES # (AUTO) 0.9 /CMM (0.8-4.8); LYMPHOCYTES % (AUTO) 23.1 % (20.0-44.0); MEAN CORPUSCULAR HEMOGLOBIN 27 PG (26.0-33.0); MEAN CORPUSCULAR HGB CONC 32 g/dl (31.0-36.0); MEAN CORPUSCULAR VOLUME 85 fL (80-96); MONOCYTES # (AUTO) 0.5 /CMM (0.1-1.30); MONOCYTES % (AUTO) 12.5 % (2.0-12.0); NEUTROPHILS # (AUTO) 2.5 /CMM (1.8-8.9); NEUTROPHILS % (AUTO) 60.5 % (43.0-81.0); PLATELET COUNT (AUTO) 113 /CMM (150-450); RDW COEFFICIENT OF VARIATION 20.6 (11.5-15.0); RED BLOOD CELL COUNT(AUTO) 2.49 MIL/uL (4.5-6.0); WHITE BLOOD COUNT (AUTO) 4.1 K/uL (4.3-11.0)
[2016-09-28 09:39] LABS: HEMOGLOBIN 6.7 g/dL (13.5-17.5)
[2016-09-28 10:01] LABS: CALCIUM, SERUM 7.7 mg/dL (8.5-10.1); CREATININE 0.8 mg/dL (0.6-1.3); MAGNESIUM 1.6 mg/dL (1.8-2.4); PHOSPHORUS 3.7 mg/dL (2.5-4.9); POTASSIUM 4.1 mmol/L (3.5-5.1)
[2016-09-28] MEDS ORDERED: SECONDARY IV SET 1 EA INFUS.SET MC ONE ×2 (10:32→20:54)
[2016-09-28] MEDS: Folic acid 1 MG in IV D5W 50 ML IV SCH (10:43)
[2016-09-28] MEDS: Thiamine 100 MG in IV D5W 50 ML IV SCH (10:43)
[2016-09-28] MEDS: IV 1/2NS 1000 ML 1,000 ML IV PRN (10:44)
[2016-09-28 11:40] LABS: ANISOCYTOSIS 1+; BAND % (MANUAL) 4 % (0.0-5.0); EOSINOPHILS % (MANUAL) 4 % (0-4); HYPOCHROMASIA 1+; LYMPHOCYTES % (MANUAL) 32 % (16-48); MONOCYTES % (MANUAL) 6 % (0-11.0); NEUTROPHILS % (MANUAL) 5 (42-76); PLATELET ESTIMATE DECREASED
[2016-09-28] MEDS ORDERED: IV NS 0.9% 250 ML IV ONE ×2 (12:24→20:20)
[2016-09-28] MEDS ORDERED: BLOOD IV SET 1 EA INFUS.SET MC ONE ×2 (12:24→20:20)
[2016-09-28] MEDS: NEOMY SULF/BACITRAC ZN/POLY 15 GM TUBE TP SCH (13:32)
--- NOTE | 2016-09-28 15:00 | NUR ---
MS RN NOTES PATIENT SIGNED AND OBTAINED CONSENT FOR BLOOD TRANSFUSION.
--- NOTE | 2016-09-28 15:48 | NUR ---
MS RN NOTES BLOOD TRANSFUSION STARTED
--- NOTE | 2016-09-28 18:49 | NUR ---
MS RN NOTES FIRST UNIT OF BLOOD FINISHED. WITH NO REACTION NOTED. VITAL SIGNS STABLE.
--- NOTE | 2016-09-28 18:52 | NUR ---
MS RN NOTES STILL FOR 2ND UNIT OF BT, ENDORSED TO INCOMING SHIFT FOR CONTINUITY OF CARE. PATIENT REMAIN STABLE THE WHOLE SHIFT.
--- NOTE | 2016-09-28 19:30 | NUR ---
MS RN OPENING NOTES: PATIENT IN BED, AOX2, CONVERSING WELL BUT SPEECH IS SLOWED, ABLE TO MAKE NEEDS KNOWN. ON ROOM AIR, BREATHING EVEN AND UNLABORED. APPEARS CALM AND IN NO DISTRESS. PIV OVER L WRIST G 16 INTACT AND PATENT, INFUSING WELL WITH 1/2 NS RUNNING AT 75 ML/HR. PATIENT HAS CLEAN AND INTACT DRESSING OVER SCALP. PROVIDED FOR COMFORT AND SAFETY. WILL CONT TO MONITOR.
--- NOTE | 2016-09-28 20:11 | NUR ---
RN NOTES: INFORMED DR FRITZ PT'S M.6. MD ORDERED FOR 4 GM IV REPLACEMENT. ORDER NOTED AND CARRIED OUT.
[2016-09-28] MEDS ORDERED: Magnesium 1GM/D5W 100ML PREMIX PIGGYBACK IV ONE ×2 (20:30→21:00)
[2016-09-28] MEDS: Magnesium 1GM/D5W 100ML PREMIX 100 ML IV SCH (21:14)
--- NOTE | 2016-09-28 21:45 | NUR ---
RN NOTES: 2ND UNIT OF PRBC ORDERED STARTED TO BE TRANSFUSED. VS TAKEN AND WNL. PATIENT DENIES ANY PAIN, OR DIFFICULTY BREATHING. INSTRUCTED PATIENT ON THE SYMPTOMS TO WATCH OUT FOR BT REACTION. WILL CONT TO MONITOR.
[2016-09-29 00:19] VITALS: BP 158/80
--- NOTE | 2016-09-29 00:19 | NUR ---
RN NOTES: 2ND UNIT OF PRBC TRANSFUSED AT THIS TIME. NO SIGNS OR SYMPTOMS OF BT REACTION OBSERVED IN PATIENT. VS CHECKED AND ARE STABLE. WILL CONT TO MONITOR.
[2016-09-29] MEDS: Magnesium 1GM/D5W 100ML PREMIX 100 ML IV SCH ×3 (00:22→02:59)
--- NOTE | 2016-09-29 00:30 | NUR ---
RN NOTES: PATIENT COMPLAINED OF 7/10 HEADACHE. ADMINISTERED ULTRAM 25 MG PO. WILL CONT TO MONITOR.
[2016-09-29] MEDS: TRAMADOL HCL 50 MG TABLET PO PRN (00:34)
--- NOTE | 2016-09-29 07:00 | NUR ---
RN NOTES: PATIENT IN BED, AOX3, ON ROOM AIR, BREATHING EVEN AND UNLABORED. NO ACUTE CHANGE IN CONDITION NOTED THROUGH SHIFT. PATIENT IS S/P 2 UNITS PRBC. MORNING CARE RENDERED. WOUND DRESSING OVER SCALP DONE. PROVIDED FOR COMFORT AND SAFETY. WILL ENDORSE TO AM RN FOR AYSE.
--- NOTE | 2016-09-29 07:25 | NUR ---
ms rn initial notes Received patient in bed, awake, sitter at bedside for constant monitoring. On room air and tolerated well. No SOB or distress noted. IV intact and patent with IVF infusing well. Kept patient clean and comfortable in bed, call light with in patient reach, will continue to monitor accordingly.
[2016-09-29 07:47] LABS: BASOPHILS % (AUTO) 0.4 % (0.0-2.0); EOSINOPHILS # (AUTO) 0.3 /CMM (0.0-0.7); HEMATOCRIT 29 % (39-51); HEMOGLOBIN 9.7 g/dL (13.5-17.5); LYMPHOCYTES # (AUTO) 1.2 /CMM (0.8-4.8); LYMPHOCYTES % (AUTO) 25.7 % (20.0-44.0); MEAN CORPUSCULAR HEMOGLOBIN 28 PG (26.0-33.0); MEAN CORPUSCULAR HGB CONC 34 g/dl (31.0-36.0); MEAN CORPUSCULAR VOLUME 85 fL (80-96); MONOCYTES # (AUTO) 0.5 /CMM (0.1-1.30); MONOCYTES % (AUTO) 11.7 % (2.0-12.0); NEUTROPHILS # (AUTO) 2.5 /CMM (1.8-8.9); NEUTROPHILS % (AUTO) 55.2 % (43.0-81.0); PLATELET COUNT (AUTO) 104 /CMM (150-450); RDW COEFFICIENT OF VARIATION 19.1 (11.5-15.0); RED BLOOD CELL COUNT(AUTO) 3.42 MIL/uL (4.5-6.0); WHITE BLOOD COUNT (AUTO) 4.5 K/uL (4.3-11.0)
[2016-09-29 08:00] VITALS: BP_SYST 145; BP_SYST 155; BP_DIAS 80
[2016-09-29 08:06] LABS: ALBUMIN 2.2 g/dL (3.4-5.0); BILIRUBIN,TOTAL 0.8 mg/dL (0.2-1.0); CALCIUM, SERUM 8.1 mg/dL (8.5-10.1); CREATININE 0.8 mg/dL (0.6-1.3); MAGNESIUM 2.4 mg/dL (1.8-2.4); PHOSPHORUS 3.8 mg/dL (2.5-4.9); POTASSIUM 3.8 mmol/L (3.5-5.1); TOTAL PROTEIN, SERUM 6.9 g/dL (6.4-8.2)
[2016-09-29 08:10] LABS: THYROID STIMULATING HORMONE 4.029 uIU/mL (0.358-3.74)
[2016-09-29] MEDS: IV 1/2NS 1000 ML 1,000 ML IV PRN ×2 (08:32→20:48)
[2016-09-29] MEDS: ALPRAZOLAM 0.5 MG TABLET PO SCH ×2 (08:33→16:29)
[2016-09-29] MEDS: PANTOPRAZOLE 40 MG VIAL IV SCH ×2 (08:33→16:29)
[2016-09-29] MEDS: VALSARTAN 80 MG TABLET PO SCH (08:34)
[2016-09-29] MEDS: NEOMY SULF/BACITRAC ZN/POLY 15 GM TUBE TP SCH (08:35)
[2016-09-29] MEDS: Thiamine 100 MG in IV D5W 50 ML IV SCH (09:27)
[2016-09-29] MEDS: Folic acid 1 MG in IV D5W 50 ML IV SCH (10:22)
--- NOTE | 2016-09-29 11:51 | NUR ---
WOUND CARE CONSULT: PATIENT SEEN AND SKIN ASSESSMENT DONE. PATIENT INCONTINENT, ABLE TO TURN AND REPOSITION HOWEVER NEEDS ASSIST AND PROMPTING, INCONTINENT, VANESA 16. SEE TODAY'S SKIN ASSESSMENT IN PCS ALONG WITH RECOMMENDATIONS. RECOMMEND MOISTURE PROTECTION WITH Z GUARD ORDERED. PRESSURE PREVENTION MEASURES ORDERED. ALL DISCUSSED WITH NURSING STAFF. MD IN AGREEMENT WITH PLAN OF CARE. Addendum: 09/29/16 at 1153 by AD WADDELL WNDNU Amended: Links added.
[2016-09-29] MEDS ORDERED: FEE PK DOSING 1 MIN EA MC ONE (12:39)
[2016-09-29] MEDS: VANCOMYCIN 1 GM in IV D5W 250 ML IV SCH ×2 (13:54→20:49)
[2016-09-29] MEDS ORDERED: SECONDARY IV SET 1 EA INFUS.SET MC ONE (13:56)
[2016-09-29] MEDS: CLOTRIMAZOLE 1% 15 GM TUBE TP SCH ×2 (15:15→16:30)
[2016-09-29 16:00] VITALS: BP 127/78
--- NOTE | 2016-09-29 19:24 | NUR ---
ms rn closing notes All needs provided, attended, and anticipated. Kept patient clean and comfortable in bed, call light within patient karlo, will continue to monitor accordingly. Endorsed to next shift RN to continue care.
--- NOTE | 2016-09-29 19:30 | NUR ---
MS RN OPENING NOTES: PATIENT IN BED, AOX3, ON ROOM AIR, BREATHING EVEN AND UNLABORED. BREATH SOUNDS DIMINISHED AT BASES BUT WITHOUT ADVENTITIOUS SOUNDS HEARD AT THIS TIME. APPARS CALM AND IN NO DISTRESS. DENIES PAIN AT THIS TIME. ENGAGES IN CONVERSATION AND IS ASKING IF HE WILL GO FOR ANOTHER PROCEDURE IN THE OR. PIV OVER RFA G 22 INTACT AND PATENT TO FLUSH. PROVIDED FOR COMFORT AND SAFETY. CALL LIGHT WITHIN REACH. BED IN LOWEST AND LOCKED POSITION, BED ALARMS ON, SIDE RAILS UP X3. WILL CONT TO MONITOR.
[2016-09-29 20:00] VITALS: BP 132/82
[2016-09-29 22:00] VITALS: BP 132/82
--- NOTE | 2016-09-30 05:00 | NUR ---
RN NOTES: PATIENT HAS JUST AWAKENED, APPEARS LESS ORIENTED THAN LAST NIGHT, SAYS, "WHEN WILL YOU BRING ME DOWNSTAIRS? ". WHEN ASKED IF HE KNOWS WHERE HE IS, HE SAID, "[place]". HOWEVER, PATIENT IS ABLE TO SAY HIS BIRTHYEAR, AND OBEYS COMMANDS. WILL CONT TO MONITOR LOC/ FREQUENCY OF PERIODS OF CONFUSION.
[2016-09-30] MEDS: VANCOMYCIN 1 GM in IV D5W 250 ML IV SCH ×2 (05:09→13:17)
--- NOTE | 2016-09-30 06:54 | NUR ---
MS RN CLOSING NOTES: PATIENT IN BED, AOX2, NOTED TO HAVE PERIODS OF CONFUSION THIS HEALTH COMMUNICATIONS SPECIALIST. ON ROOM AIR, BREATHING EVEN AND UNLABORED. IN NO APPARENT DISTRESS. DUE MEDS GIVEN. WOUND DRESSING OVER SCALP CHANGED. MAINTAINED ON FUL LIQS DIET. PIV OVER L WRIST G16 INTACT AND PATENT, INFUSING WELL WITH 1/2 NS RUNNIGN AT 125 ML/HR. PROVIDED FOR COMFORT AND SAFETY. BED IN LOWEST AND LOCKED POSITION, SIDERAILS UP X3, BED ALARMS ON. CALL LIGHT WITHIN REACH. WILL ENDORSE TO AM RN FOR AYSE.
[2016-09-30 06:58] LABS: CALCIUM, SERUM 8.1 mg/dL (8.5-10.1); CREATININE 0.7 mg/dL (0.6-1.3); POTASSIUM 3.7 mmol/L (3.5-5.1)
--- NOTE | 2016-09-30 07:10 | NUR ---
MS RN INITIAL NOTES Received patient in bed, awake, head of bed elevated, no SOB or distress noted. Patient on room air, IV intact with IV fluid infusing well. kept patient clean, comfortable in bed, call light within patient reach, continue to monitor accordingly.
[2016-09-30 08:00] VITALS: BP 134/86
[2016-09-30] MEDS: VALSARTAN 80 MG TABLET PO SCH (08:22)
[2016-09-30] MEDS: ALPRAZOLAM 0.5 MG TABLET PO SCH ×2 (08:22→16:53)
[2016-09-30] MEDS: PANTOPRAZOLE 40 MG VIAL IV SCH (08:22)
[2016-09-30] MEDS: CLOTRIMAZOLE 1% 15 GM TUBE TP SCH ×2 (08:23→16:54)
[2016-09-30] MEDS: IV 1/2NS 1000 ML 1,000 ML IV PRN (10:05)
[2016-09-30] MEDS: Thiamine 100 MG in IV D5W 50 ML IV SCH (10:05)
[2016-09-30] MEDS: Folic acid 1 MG in IV D5W 50 ML IV SCH (10:05)
[2016-09-30] MEDS: NEOMY SULF/BACITRAC ZN/POLY 15 GM TUBE TP SCH (10:06)
[2016-09-30 16:00] VITALS: BP 113/70
--- NOTE | 2016-09-30 19:25 | NUR ---
MS/RN NOTES RECEIVED PT. LYING IN BED. AWAKE, ALERT AND ORIENTED X2. BREATHING EVEN AND UNLABORED ON ROOM AIR. NO SOB, RESPIRATORY DISTRESS OR COMPLAINTS OF PAIN NOTED AT THIS TIME. PT. WITH LEFT WRIST 16 GAUGE SALINE LOCK PRESENT, PATENT AND INTACT. PT. WITH RIGHT FOREARM 22 GAUGE PERIPHERAL IV PRESENT, PATENT AND INTACT ADMINISTERING TO PT. 1/2 NS @ 125 ML/HR. BED IN LOWEST POSITION, CALL LIGHT WITHIN REACH, WILL CONTINUE TO MONITOR.
--- NOTE | 2016-09-30 19:26 | NUR ---
ms rn closing notes All needs provided, attended, and anticipated. kept patient clean and comfortable in bed, call light with in patient reach, will continue to monitor accordingly. Endorsed to next shift RN to continue care.
[2016-09-30 20:00] VITALS: BP 133/76
[2016-09-30] MEDS: VANCOMYCIN 0.75 GM in IV D5W 250 ML IV SCH (20:58)
[2016-10-01] MEDS ORDERED: IV 1/2NS 1000 ML 1,000 ML IV ONE (04:33)
[2016-10-01] MEDS: IV 1/2NS 1000 ML 1,000 ML IV PRN (05:15)
[2016-10-01] MEDS: VANCOMYCIN 0.75 GM in IV D5W 250 ML IV SCH (05:15)
--- NOTE | 2016-10-01 06:19 | NUR ---
MS/RN NOTES PT. LYING IN BED RESTING. BREATHING EVEN AND UNLABORED ON ROOM AIR. NO SOB, RESPIRATORY DISTRESS OR COMPLAINTS OF PAIN NOTED AT THIS TIME. PT. WITH LEFT WRIST 16 GAUGE SALINE LOCK PRESENT, PATENT AND INTACT. PT. WITH RIGHT FOREARM 22 GAUGE PERIPHERAL IV PRESENT, PATENT AND INTACT ADMINISTERING TO PT. 1/2 NS @ 125 ML/HR. PT. TOLERATING WELL. ALL PT. NEEDS MET. BED IN LOWEST POSITION, CALL LIGHT WITHIN REACH, WILL ENDORSE TO DAYSHIFT NURSE FOR CONTINUITY OF CARE.
[2016-10-01 06:51] LABS: CALCIUM, SERUM 8.4 mg/dL (8.5-10.1); CREATININE 0.8 mg/dL (0.6-1.3); POTASSIUM 3.6 mmol/L (3.5-5.1)
[2016-10-01 06:53] LABS: BASOPHILS % (AUTO) 0.4 % (0.0-2.0); EOSINOPHILS # (AUTO) 0.3 /CMM (0.0-0.7); EOSINOPHILS % (AUTO) 5.6 % (0.0-6.0); HEMATOCRIT 31 % (39-51); HEMOGLOBIN 10.3 g/dL (13.5-17.5); LYMPHOCYTES # (AUTO) 1.2 /CMM (0.8-4.8); LYMPHOCYTES % (AUTO) 24.5 % (20.0-44.0); MEAN CORPUSCULAR HEMOGLOBIN 28 PG (26.0-33.0); MEAN CORPUSCULAR HGB CONC 33 g/dl (31.0-36.0); MEAN CORPUSCULAR VOLUME 85 fL (80-96); MONOCYTES # (AUTO) 0.5 /CMM (0.1-1.30); NEUTROPHILS # (AUTO) 2.9 /CMM (1.8-8.9); NEUTROPHILS % (AUTO) 58.5 % (43.0-81.0); PLATELET COUNT (AUTO) 120 /CMM (150-450); RDW COEFFICIENT OF VARIATION 18.8 (11.5-15.0); RED BLOOD CELL COUNT(AUTO) 3.66 MIL/uL (4.5-6.0); WHITE BLOOD COUNT (AUTO) 4.9 K/uL (4.3-11.0)
[2016-10-01 08:00] VITALS: BP 131/72
--- NOTE | 2016-10-01 08:00 | NUR ---
MS/RN AM NOTES PT. LYING IN BED AWAKE WITH CONFUSION.PT KEEPS ASKING FOR HERNANDEZ CATHETER PLACED SINCE HE IS GOING TO HAVE SURGERY PROCEDURE TO BE DONE.REORIENTATION GIVEN THAT THERE IS NO SURGERY TO BE DONE FREQUENTLY. BREATHING EVEN AND UNLABORED ON ROOM AIR. NO SOB, RESPIRATORY DISTRESS OR COMPLAINTS OF PAIN NOTED AT THIS TIME. PT. WITH LEFT WRIST 16 GAUGE SALINE LOCK PRESENT, PATENT AND INTACT. PT. WITH RIGHT FOREARM 22 GAUGE PERIPHERAL IV PRESENT, PATENT AND INTACT ADMINISTERING TO PT. 1/2 NS @ 125 ML/HR. PT. TOLERATING WELL. ALL PT. NEEDS MET. BED IN LOWEST POSITION, CALL LIGHT WITHIN REACH,
[2016-10-01] MEDS: PANTOPRAZOLE 40 MG VIAL IV SCH (08:38)
[2016-10-01] MEDS: FOLIC ACID 1 MG TABLET PO SCH (08:38)
[2016-10-01] MEDS: ALPRAZOLAM 0.5 MG TABLET PO SCH ×2 (08:38→17:24)
[2016-10-01] MEDS: VALSARTAN 80 MG TABLET PO SCH (08:38)
[2016-10-01] MEDS: TRAMADOL HCL 50 MG TABLET PO PRN (08:38)
[2016-10-01] MEDS: THIAMINE HCL 100 MG TABLET PO SCH (08:42)
[2016-10-01] MEDS: NEOMY SULF/BACITRAC ZN/POLY 15 GM TUBE TP SCH (08:44)
[2016-10-01] MEDS: CLOTRIMAZOLE 1% 15 GM TUBE TP SCH ×2 (08:44→17:29)
[2016-10-01] MEDS: CLINDAMYCIN 600 MG in IV D5W 50 ML IV SCH ×2 (13:09→21:00)
[2016-10-01] MEDS ORDERED: CLIN600P2 IV (15:46)
[2016-10-01 16:00] VITALS: BP_SYST 131; BP_DIAS 72; BP_DIAS 83
--- NOTE | 2016-10-01 18:21 | NUR ---
PT RESTING IN BED WITH ONGOING IVF OF 1/2 NS AT 125 ML/HR INFUSING WELL.DENIES PAIN OR DISTRESS.CALL LIGHT WITHIN REACH.
[2016-10-01 20:00] VITALS: BP 145/78
--- NOTE | 2016-10-01 20:00 | NUR ---
MS ALIA INITIAL NOTES RECEIVED REPORT FROM AM NURSE MICHAEL, CHECKED PT HE'S AWAKE AND ALERT WATCHING TV AT THIS TIME ,NOT IN ANY ACUTE DISTRESS NOTED, CONFUSION AT TIMES WHEN YOU STARTED TALKING TO HIM. IVF OF 1/2 NS AT 125ML/HR . RE-ORIENTED WHERE HE AT AND HOW TO USED THE CALL LIGHT SYSTEM.DRESSING FROM HIS SCALP DRY AND INTACT, COVERED WITH BURN NET. KEPT HIM WARM AND COMFORTABLE AT ALL TIMES. BED ALARM SET FOR SAFETY .,PLACE CALL LIGHT AT REACH. WILL CONTINUE TO MONITOR.
--- NOTE | 2016-10-02 | NUR ---
MUSEUM SECURITY CHIEF/NOTES PT SLEEPING COMFORTABLY IN BED WITH NO SIGNS OF ACUTE DISTRESS NOTED. BREATHING EVEN AND NON-LABORED. IVF STILL INFUSING. KEPT HIM WARM AND COMFORTABLE AT ALL TIMES. WILL CONTINUE TO MONITOR. PLACE CALL LIGHT AT REACH.
[2016-10-02] MEDS: IV 1/2NS 1000 ML 1,000 ML IV PRN (05:22)
[2016-10-02] MEDS: CLINDAMYCIN 600 MG in IV D5W 50 ML IV SCH ×3 (05:24→21:26)
[2016-10-02 06:39] LABS: BASOPHILS % (AUTO) 0.5 % (0.0-2.0); EOSINOPHILS # (AUTO) 0.2 /CMM (0.0-0.7); EOSINOPHILS % (AUTO) 4.6 % (0.0-6.0); HEMATOCRIT 31 % (39-51); LYMPHOCYTES # (AUTO) 1.6 /CMM (0.8-4.8); LYMPHOCYTES % (AUTO) 32.2 % (20.0-44.0); MEAN CORPUSCULAR HEMOGLOBIN 28 PG (26.0-33.0); MEAN CORPUSCULAR HGB CONC 33 g/dl (31.0-36.0); MEAN CORPUSCULAR VOLUME 84 fL (80-96); MONOCYTES # (AUTO) 0.6 /CMM (0.1-1.30); MONOCYTES % (AUTO) 12.7 % (2.0-12.0); NEUTROPHILS # (AUTO) 2.5 /CMM (1.8-8.9); PLATELET COUNT (AUTO) 113 /CMM (150-450); RDW COEFFICIENT OF VARIATION 18.5 (11.5-15.0); RED BLOOD CELL COUNT(AUTO) 3.63 MIL/uL (4.5-6.0)
[2016-10-02 06:50] LABS: CALCIUM, SERUM 8.3 mg/dL (8.5-10.1); CREATININE 0.8 mg/dL (0.6-1.3); MAGNESIUM 1.4 mg/dL (1.8-2.4); PHOSPHORUS 4.6 mg/dL (2.5-4.9); POTASSIUM 3.6 mmol/L (3.5-5.1)
--- NOTE | 2016-10-02 06:52 | NUR ---
CASHIER CLERK/CLOSING NOTES PT AWAKE AND ALERT WOUND CARE TREATMENT DONE AND SPONGES BATH RENDERED WELL. IVF STILL INFUSING. STABLE STIVEN THE NIGHT AND ALL DUE MEDS GIVEN. KEPT HIM WARM AND COMFORTABLE AT ALL TIMES. SAFETY PRECAUTION IMPLEMENTED AND OBSERVED. PLACE CALL LIGHT AT REACH. WILL ENDORSE TO AM NURSE FOR CONTINUITY OF CARE.
--- NOTE | 2016-10-02 07:46 | NUR ---
MS RN OPENING NOTE PATIENT IS ALERT AND ORIENTED x4. NO PAIN AT THIS TIME. NO SOB OR DISTRESS NOTED. SAFETY MEASURES IMPLEMENTED. CALL LIGHT WITHIN REACH. ON FULL LIQUID DIET. BED REST. IV INTACT AND PATENT NO REDNESS OR SWELLING NOTED. S/P EXCISIONAL DEBRIDEMENT OF SCALP WOUND. NO BLEEDING NOTED. WILL PROVIDE WOUND TREATMENT CARE. WILL CONTINUE TO MONITOR
[2016-10-02 08:00] VITALS: BP 132/79
[2016-10-02] MEDS: VALSARTAN 80 MG TABLET PO SCH (08:30)
[2016-10-02] MEDS: FOLIC ACID 1 MG TABLET PO SCH (08:30)
[2016-10-02] MEDS: THIAMINE HCL 100 MG TABLET PO SCH (08:30)
[2016-10-02] MEDS: ALPRAZOLAM 0.5 MG TABLET PO SCH ×2 (08:30→17:29)
[2016-10-02] MEDS: PANTOPRAZOLE 40 MG VIAL IV SCH (08:30)
[2016-10-02] MEDS: NEOMY SULF/BACITRAC ZN/POLY 15 GM TUBE TP SCH (08:31)
[2016-10-02] MEDS: CLOTRIMAZOLE 1% 15 GM TUBE TP SCH ×2 (08:32→17:31)
[2016-10-02] MEDS ORDERED: MAGNESIUM OXIDE 400 MG TABLET PO ONE (11:00)
[2016-10-02 16:00] VITALS: BP 112/63
--- NOTE | 2016-10-02 16:00 | NUR ---
MS RN NOTE CHANGED PATIENT ROOM FROM 310-2 TO 312-1.
--- NOTE | 2016-10-02 18:15 | NUR ---
MS RN CLOSING NOTE PATIENT IS ALERT AND ORIENTED X4. NO PAIN AT THIS TIME. NO SOB OR DISTRESS NOTED. ALL DUE MEDICATION GIVEN ORDERED. SAFETY MEASURES IMPLEMENTED. ALL NURSING CARE NEEDS ATTENDED TO. IV INTACT AND PATENT NO REDNESS OR SWELLING NOTED. NO SIGNIFICANT CHANGES NOTED. WILL ENDORSE TO BIZTALK SOFTWARE DEVELOPER NURSE
--- NOTE | 2016-10-02 19:53 | NUR ---
MS ADJUNCT FACULTY INITIAL NOTES' SEEN PT IN BED RESTING WITH EYES CLOSED BUT AROUSES TO TOUCH, DENIES ANY PAIN OR ANY DISCOMFORT. HEPLOCK AT THIS TIME PATENT AND INTACT. DRESSING ON HIS HEAD STILL DRY AND INTACT. KEPT HIM WARM AND COMFORTABLE AT ALL TIMES. WILL CONTINUE TO MONITOR. PLACE CALL LIGHT AT REACH.
[2016-10-02 20:00] VITALS: BP 130/63
--- NOTE | 2016-10-02 21:43 | NUR ---
KELP CUTTER/NOTES AMBIEN GIVEN PER PT REQUESTED , SAFETY PRECAUTION IMPLEMENTED. AND OBSERVED. WILL CONTINUE TO MONITOR. PLACE CALL LIGHT AT REACH.
[2016-10-03] MEDS: CLINDAMYCIN 600 MG in IV D5W 50 ML IV SCH ×2 (05:39→13:00)
--- NOTE | 2016-10-03 07:30 | NUR ---
MS RN AM NOTES PT IN BED, AAO X 3, [place], ON RA, NAD NO SOB, S/P EXCISIONAL DEBRIDEMENT ON SCALP WOUND 09/[address] URIBE[address] CDI DRESSING IN PLACE. DENIES ANY PAIN OR ANY DISCOMFORT. LEFT WRIST AND RT HAND G22 IVHL BOTH FLUSHES WELL, BOTH SITES CLEAR. BEDREST, SEE NURSING FLOWSHEET FOR SKIN ISSUES. WILL CONTINUE TO MONITOR. SAFETY MEASURES IN PLACE. CALL LIGHT AT REACH. WILL CONT TO MONITOR.
--- NOTE | 2016-10-03 07:48 | NUR ---
MANAGER INFRASTRUCTURE/CLOSING NOTES PT AWAKE AND ALERT WATCHING TV AT THIS TIME. ALL DUE MEDS GIVEN AND ALL NEEDS MET. SLEPT WELL AFTER AMBIEN GIVEN. STABLE STIVEN THE NIGHT. MORNING CARE ALSO DONE. KEPT HIM WARM AND COMFORTABLE AT ALL TIMES. ENDORSE TO AM NURSE. PLACE CALL LIGHT AT REACH.
[2016-10-03 08:00] VITALS: BP 104/67
[2016-10-03] MEDS: ALPRAZOLAM 0.5 MG TABLET PO SCH ×2 (09:00→17:00)
[2016-10-03] MEDS: THIAMINE HCL 100 MG TABLET PO SCH (09:00)
[2016-10-03] MEDS: NEOMY SULF/BACITRAC ZN/POLY 15 GM TUBE TP SCH (09:00)
[2016-10-03] MEDS: PANTOPRAZOLE 40 MG VIAL IV SCH (09:00)
[2016-10-03] MEDS: CLOTRIMAZOLE 1% 15 GM TUBE TP SCH ×2 (09:00→17:00)
[2016-10-03] MEDS: VALSARTAN 80 MG TABLET PO SCH (09:00)
[2016-10-03] MEDS: FOLIC ACID 1 MG TABLET PO SCH (09:00)
--- NOTE | 2016-10-03 09:30 | NUR ---
MS RN NOTES PATIENT REFUSED ALL MEDS, TREATMENT AND FOOD. STATED, "I WANT TO KILL MYSELF". JOB ULLOA FRESH MEAT GRADER NOTIFIED.
[2016-10-03] MEDS ORDERED: LACTULOSE 10 G/15 ML UDC (PYXIS) PO PRN (10:00)
--- NOTE | 2016-10-03 10:40 | NUR ---
MS RN NOTES PATIENT REFERRED TO CRISIS TEAM AND DR. TREVIZO FOR PSYCH CONSULT. DOES NOT NEED ANY HOLD ORDERS.
[2016-10-03] MEDS: Magnesium 1GM/D5W 100ML PREMIX 100 ML IV SCH ×2 (11:00→12:00)
--- NOTE | 2016-10-03 11:45 | NUR ---
MS RN NOTES PATIENT REFUSED MAGNESIUM IV, GETS AGITATED IF QUESTIONED. MD AWARE.
[2016-10-03] MEDS ORDERED: SECONDARY IV SET 1 EA INFUS.SET MC ONE (12:02)
--- NOTE | 2016-10-03 13:25 | NUR ---
MS RN NOTES PATIENT REFUSE CLEOCIN IV DESPITE EXPLAINING RISK AND BENEFITS.
[2016-10-03 16:00] VITALS: BP 105/64
[2016-10-03 18:00] VITALS: BP 105/64
--- NOTE | 2016-10-03 18:05 | NUR ---
MS RN NOTES REPORT GIVEN TO EMMA LI AT [facility]. PT IS GOING TO ROOM 4401.
--- NOTE | 2016-10-03 18:33 | NUR ---
MS RN NOTES PATIENT TRANSFERRED/DISCHARGED [facility] PER MD INSTABLE CONDITION FOR HIGHER LEVEL OF CARE. PROVIDED DC INSTRUCTIONS, MED RECON LIST, TEACHINGS AND CD OF DIAGNOSTICS. PATIENT WITH LEFT WRIST G16 HL AND RT HAND G22 HEPLOCK, BOTH SITES CLEAR AND INTACT. REFUSE PHOTOS OF ALL SKIN ISSUES AND WANTS HERNANDEZ CATHETER INSTEAD [EXPLAINED NOT NEEDED AT THIS TIME]. ALL MEDS AND TREATMENT REFUSED TODAY MD AWARE. PATIENT PICKED UP BY 2 AMBULANCE CREW TO BE TRANSPORTED TO FACILITY ROOM 4401. REPORT GIVEN TO EMMA LOVELACE.
== END 2016-10-03 18:44 | disposition short-term general hospital (02) | DRG 950 ==
LOC: ER 22:22 → MED 09-28 00:04
PROVIDERS: ADMIT Nurse Practitioner Acute Care; ATTEND Internal Medicine
PROC: 30233N1 Transfusion of Nonautologous Red Blood Cells into Peripheral Vein, Percutaneous Approach (ICD-10-PCS; 2016-09-28)
PROC: 0NB00ZZ Excision of Skull, Open Approach (ICD-10-PCS; principal; 2016-09-29)
DX: K25.0 Acute gastric ulcer with hemorrhage (principal); G92 Toxic encephalopathy; E87.2 Acidosis; T81.30XA Disruption of wound, unspecified, initial encounter; E46 Unspecified protein-calorie malnutrition; D69.59 Other secondary thrombocytopenia; K70.30 Alcoholic cirrhosis of liver without ascites; T81.89XA Other complications of procedures, not elsewhere classified, initial encounter; E83.42 Hypomagnesemia; D64.9 Anemia, unspecified; E78.5 Hyperlipidemia, unspecified; F10.10 Alcohol abuse, uncomplicated; Z87.820 Personal history of traumatic brain injury; E83.51 Hypocalcemia; I10 Essential (primary) hypertension; K21.9 Gastro-esophageal reflux disease without esophagitis; J44.9 Chronic obstructive pulmonary disease, unspecified; F17.210 Nicotine dependence, cigarettes, uncomplicated; Z85.841 Personal history of malignant neoplasm of brain; Y83.9 Surgical procedure, unspecified as the cause of abnormal reaction of the patient, or of later complication, without mention of misadventure at the time of the procedure; Y92.9 Unspecified place or not applicable; B35.1 Tinea unguium; F43.20 Adjustment disorder, unspecified; I87.2 Venous insufficiency (chronic) (peripheral)
CPT/HCPCS: 36415; 70450-TC; 71010-TC; 80048-TC; 80053-TC; 80061-TC; 80076-TC; 80202-TC; 82140-TC; 82962-TC; 83540-TC; 83605-TC; 83735-TC; 84100-TC; 84443-TC; 84484-TC; 85025-TC; 85730-TC; 86850-TC; 86921-TC; 87040-TC; 87070-TC; 87081-TC; A4606; A6253; A6402; A6403; C9113; G0480; G6039-TC; J3370; J3411; J3475; J3490; J7040; J7050; J7060; P9016-BL; Z7610

== ENCOUNTER 2016-12-30 22:12 | Inpatient (IN) | payer OTHER ==
[~2016-12-30] VITALS: Ht 167.6 cm; Wt 95.3 kg
[~2016-12-30 22:12] MED LIST changes: +CLIN600P2 IV
--- NOTE | 2016-12-30 22:50 | NUR ---
PT BIBRA "FEELING SICK, PALE, DIAPHORETIC, HYPOTENSIVE IN MID 70'S" FSBS 112G/DL; 250ML NS BOLUS GIVEN DEMOLITION EXPERT. PT AOX4 RR EVEN AND UNLABORED. NO SOB NOTED. NAD NOTED. NO NVD AT THIS TIME. PT NOT DIAPHORETIC AT THIS TIME. PT NOTED PALE. PT GOWNED AND PLACED ON MONITOR WAITING FOR MD LEY
[2016-12-30] MEDS ORDERED: IV NS 0.9% 1,000 ML BAG IV ONE (23:00)
[2016-12-30] MEDS ORDERED: ONDANSETRON HCL/PF 4 MG/2 ML VIAL IVP ONE (23:00)
--- NOTE | 2016-12-30 23:00 | NUR ---
LABS AND BLOOD CX COLLECTED. SENT TO LAB
[2016-12-30] MEDS ORDERED: ONDANSETRON HCL/PF 4 MG/2 ML VIAL ONE (23:16)
[2016-12-30 23:30] LABS: ALANINE AMINOTRANSFERASE 16 U/L (12-78); ALBUMIN 1.9 g/dL (3.4-5.0); ALKALINE PHOSPHATASE 61 U/L (46-116); ASPARTATE AMINOTRANSFERASE 16 U/L (15-37); BILIRUBIN,DIRECT 0.1 mg/dL (0.0-0.2); BILIRUBIN,TOTAL 0.4 mg/dL (0.2-1.0); CALCIUM, SERUM 7.3 mg/dL (8.5-10.1); CARBON DIOXIDE 25 mmol/L (21-32); CHLORIDE 111 mmol/L (98-107); GLUCOSE 157 mg/dL (74-106); POTASSIUM 4.2 mmol/L (3.5-5.1); SODIUM SERUM 143 mmol/L (136-145); TOTAL PROTEIN, SERUM 5.5 g/dL (6.4-8.2); UREA NITROGEN, BLOOD 7 mg/dL (7-18)
[2016-12-30 23:33] LABS: TROPONIN I < 0.017 ng/mL (0.00-0.056)
[2016-12-30 23:41] LABS: BASOPHILS % (AUTO) 0.4 % (0.0-2.0); EOSINOPHILS % (AUTO) 0.7 % (0.0-6.0); LYMPHOCYTES # (AUTO) 0.9 /CMM (0.8-4.8); LYMPHOCYTES % (AUTO) 15.4 % (20.0-44.0); MEAN CORPUSCULAR HEMOGLOBIN 20 PG (26.0-33.0); MEAN CORPUSCULAR HGB CONC 28 g/dl (31.0-36.0); MEAN CORPUSCULAR VOLUME 69 fL (80-96); MONOCYTES # (AUTO) 0.4 /CMM (0.1-1.30); MONOCYTES % (AUTO) 6.8 % (2.0-12.0); NEUTROPHILS # (AUTO) 4.4 /CMM (1.8-8.9); NEUTROPHILS % (AUTO) 76.7 % (43.0-81.0); PLATELET COUNT (AUTO) 110 /CMM (150-450); RDW COEFFICIENT OF VARIATION 23.4 (11.5-15.0); WHITE BLOOD COUNT (AUTO) 5.7 K/uL (4.3-11.0)
[2016-12-30 23:43] LABS: RED BLOOD CELL COUNT(AUTO) 1.57 MIL/uL (4.5-6.0)
[2016-12-30 23:44] LABS: HEMOGLOBIN 3.1 g/dL (13.5-17.5)
[2016-12-30 23:45] LABS: HEMATOCRIT 11 % (39-51)
--- NOTE | 2016-12-30 23:46 | NUR ---
PT TO CT.
[2016-12-31] VITALS (59 sets, daily range): BP systolic 100–155; BP diastolic 52–98
--- NOTE | 2016-12-31 | NUR ---
PT RETURNED FROM CT.
--- NOTE | 2016-12-31 00:22 | NUR ---
URINE COLLECTED. CALLED LAB FOR HOSPITAL PERSONNEL DIRECTOR.
[2016-12-31 00:43] LABS: APPEARANCE,URINE SL CLOUDY (CLEAR); BILIRUBIN,URINE NEGATIVE (NEGATIVE); BLOOD, URINE NEGATIVE Ery/uL (NEGATIVE); COLOR,URINE RED (YELLOW); KETONES,URINE TRACE (NEGATIVE); LEUKOCYTE ESTERASE ,URINE NEGATIVE (NEGATIVE); NITRITE, URINE POSITIVE (NEGATIVE); PROTEIN,URINE TRACE mg/dl (NEGATIVE); UGLUCOSE NEGATIVE (NEGATIVE); UROBILINOGEN,URINE 0.2 EU/dL (0.2)
[2016-12-31] MEDS ORDERED: VANCOMYCIN 1 GM in IV D5W 250 ML IV STA (00:55)
[2016-12-31] MEDS ORDERED: VANCOMYCIN 1 GM VIAL ONE (01:03)
[2016-12-31 01:17] LABS: RBC,URINE 0-2 /HPF (0-2)
[2016-12-31 01:18] LABS: BACTERIA,URINE None seen /HPF (None Seen); SQUAMOUS EPITHELIAL CELL,UR Few /HPF (None Seen); URINE AMORPHOUS URATE Many /HPF (None Seen); WBC,URINE 0-2 /HPF (0-3)
--- NOTE | 2016-12-31 01:25 | NUR ---
1ST UNIT OF PRBC TRASNFUSING. VSS. NO ASE AT THIS TTIME.
--- NOTE | 2016-12-31 01:32 | NUR ---
DR. CHAPPELL SPEAKING TO DR. DUENAS REGARDING ADMISSION
--- NOTE | 2016-12-31 01:58 | NUR ---
PT TRANSFERE TO ER BED 256 ICU FOR ACLS PROTOCOL. RN USAMA AWARE 1ST UNIT OF PRBC TRANSFUSING AND VANCOMYCIN IVB TRASNFUSING UPON ADMISSION.
[2016-12-31] MEDS ORDERED: D5W IV ONE (02:00)
[2016-12-31] MEDS ORDERED: PANTOPRAZOLE IV ONE (02:00)
[2016-12-31] MEDS ORDERED: ACETAMINOPHEN 325 MG TABLET PO PRN (02:00)
[2016-12-31] MEDS ORDERED: ONDANSETRON HCL/PF 4 MG/2 ML VIAL IVP PRN (02:00)
[2016-12-31] MEDS ORDERED: PANTOPRAZOLE 40 MG VIAL ONE ×2 (02:36→03:07)
[2016-12-31 03:26] LABS: EOSINOPHILS % (MANUAL) 1 % (0-4); LYMPHOCYTES % (MANUAL) 12 % (16-48); MONOCYTES % (MANUAL) 3 % (0-11.0); NEUTROPHILS % (MANUAL) 84 (42-76)
[2016-12-31] MEDS ORDERED: ALBUTEROL FS 2.5 MG/3 ML VIAL.NEB NEB PRN (03:30)
[2016-12-31] MEDS ORDERED: LACTULOSE 10 G/15 ML UDC (PYXIS) PO PRN (03:30)
[2016-12-31] MEDS ORDERED: IV D5/ 0.9% NACL 1,000 ML IV PRN (03:30)
[2016-12-31] MEDS: PANTOPRAZOLE 80 MG in IV NS 0.9% 500 ML IV PRN ×2 (03:37→23:09)
[2016-12-31] MEDS ORDERED: Folic acid 1 MG/0.2 ML VIAL ONE (03:48)
[2016-12-31] MEDS ORDERED: Thiamine 100 MG/ML VIAL ONE (03:48)
[2016-12-31] MEDS: Thiamine 100 MG in IV D5W 50 ML IV SCH (03:59)
[2016-12-31] MEDS: Folic acid 1 MG in IV D5W 50 ML IV SCH (04:12)
--- NOTE | 2016-12-31 04:42 | NUR ---
LAWYER. ADMISSION. RECEIVED THE PT FROM ER VIA [employer]. PT AWAKE, ALERT, FOLLOW COMMANDS. CLEANING TECHNICIAN SHOWING NSR. IV RT AND LT HAND 1ST UNIT . BLOOD STARTED FROM ER. PT ON ROOM AIR. SAT 97%. NO ACUTE DISTRESS NOTED. HOB ELEVATED. TURN AND REPOSITION PT INDEPENDENT. AFEBRILE. WILL CONTINUE TO MONITOR VITALS.
--- NOTE | 2016-12-31 05:03 | NUR ---
WHARF ATTENDANT. 1ST UNIT BLOOD STARTED FROM ER. FINISHED IN THE ICU. DURING TRANSFUSION NO COMPLICATION NOTED.
[2016-12-31 05:25] LABS: INR 1.43 (0.87-1.13); PROTHROMBIN TIME 15.7 SECS (9.5-12.7)
--- NOTE | 2016-12-31 06:11 | NUR ---
IMPROVEMENT ADVISOR. LACTIC ACID 5.7. DR DUENAS MADE AWARE.
--- NOTE | 2016-12-31 08:07 | NUR ---
2ND UNIT OF FFP RUNNING. PT HAS RECVD 2 UNITS OF PRBC AND 2ND UNIT OF FFP INFUSING. 2 MORE UNITS OF PRBC LEFT PER PM SHIFT REPORT.
[2016-12-31 09:00] LABS: BASOPHILS % (AUTO) 0.4 % (0.0-2.0); EOSINOPHILS % (AUTO) 0.1 % (0.0-6.0); LYMPHOCYTES # (AUTO) 1.4 /CMM (0.8-4.8); LYMPHOCYTES % (AUTO) 26.1 % (20.0-44.0); MEAN CORPUSCULAR HEMOGLOBIN 24 PG (26.0-33.0); MEAN CORPUSCULAR HGB CONC 31 g/dl (31.0-36.0); MEAN CORPUSCULAR VOLUME 76 fL (80-96); MONOCYTES # (AUTO) 0.6 /CMM (0.1-1.30); MONOCYTES % (AUTO) 10.2 % (2.0-12.0); NEUTROPHILS # (AUTO) 3.5 /CMM (1.8-8.9); NEUTROPHILS % (AUTO) 63.2 % (43.0-81.0); PLATELET COUNT (AUTO) 75 /CMM (150-450); RDW COEFFICIENT OF VARIATION 22.3 (11.5-15.0); WHITE BLOOD COUNT (AUTO) 5.5 K/uL (4.3-11.0)
[2016-12-31 09:03] LABS: HEMATOCRIT 14 % (39-51); HEMOGLOBIN 4.3 g/dL (13.5-17.5)
[2016-12-31 09:13] LABS: EOSINOPHILS % (MANUAL) 1 % (0-4); LYMPHOCYTES % (MANUAL) 19 % (16-48); MONOCYTES % (MANUAL) 8 % (0-11.0); NEUTROPHILS % (MANUAL) 72 (42-76)
[2016-12-31 09:21] LABS: BILIRUBIN,DIRECT 0.2 mg/dL (0.0-0.2); TOTAL PROTEIN, SERUM 5.5 g/dL (6.4-8.2)
--- NOTE | 2016-12-31 09:55 | NUR ---
LABS DRAWN WITHOUT NOTIFYING NURSE. HGB AND HCT WERE SUPPOSED TO BE DRAWN AFTER PRBCS ARE COMPLETE. BLOOD PANEL DRAWN IN BETWEEN PRBC 3/4 UNIT. WILL ORDER ANOTHER CBC WHEN TRANSFUSIONS ARE COMPLETE
--- NOTE | 2016-12-31 11:46 | NUR ---
PT WENT FOR PROCEDURE COLONOSCOPY AND EGD.
--- NOTE | 2016-12-31 12:44 | NUR ---
PT BACK FROM PROCEDURE. ORDERS BY GI: NPO X MEDS CLEAR LIQUID DIET IN 12HRS CONTINUE OCRTREOTIDE X22HRS CONTINUE PROTONIX DRIP X72 HRS NO NSAIDS
[2016-12-31] MEDS ORDERED: OCTREOTIDE 50 MCG in IV NS 0.9% 50 ML IV ONE (13:00)
--- NOTE | 2016-12-31 13:32 | NUR ---
WOUND CARE CONSULT: PT FOLLOWED BY SURGICAL TEAM. WILL SEE PRN. DEFER TO SURGICAL TEAM FOR WOUND TREATMENT PLAN.
[2016-12-31] MEDS: LEVOFLOXACIN (500MG) 500 MG TABLET PO SCH (14:15)
[2016-12-31] MEDS: OCTREOTIDE 1,250 MCG in IV NS 0.9% 247.5 ML IV PRN (14:24)
[2016-12-31] MEDS: IV NS 0.9% 1,000 ML IV PRN (15:01)
--- NOTE | 2016-12-31 15:21 | NUR ---
apartment maintenance worker met with patient at bed side. Patient is oriented to place and self. Patient was calm and cooperative. Per patient, he lives at home with family patient provided a different address than the one on the face sheet. However it was difficult to understand and patient could not spell the street name. apartment maintenance worker followed-up with patient's family. Per family, patient resides at [address] [place] [address] ([phone]) Patient's service advocate contact is Sushma Gupta ([phone]). Per patient he has two daughters and one son. 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 apartment maintenance worker asked patient if he would like to go to a treatment center. Patient refused going to a treatment center and declined any resources. Patient stated that he does not receive SSI. Patient denied visual and auditory hallucinations. Patient denied suicidal and homicidal ideations.
--- NOTE | 2016-12-31 15:52 | NUR ---
5 UNITS PRBC (4 FROM ADMISSION, [address] CUEVAS) AND 2 UNITS FFP INFUSED. ORDERED FOR HGB AND HCT 1HR AFTER INFUSION COMPLETION.
[2016-12-31 16:42] LABS: HEMOGLOBIN 7.5 g/dL (13.5-17.5)
--- NOTE | 2016-12-31 17:47 | NUR ---
CALLED LAB TO PUSH RESULTS FOR HGB HCT
--- NOTE | 2016-12-31 18:37 | NUR ---
HGB/HCT 7.5 RELAYED THE LABS TO MARCI FRITZ. GIVES NO NEW ORDERS. CBC IN AM (ORDER WAS ALREADY PUT IN BY DR. FRITZ).
--- NOTE | 2016-12-31 19:38 | NUR ---
PROGRAM MANAGER SLP. INITIAL ASSESSMENT. RECEIVED THE PT REST ON THE BED. PT AWAKE, ALERT, FOLLOW COMMANDS. FUSE COILER SHOWING NSR. IV RT HAND IVF NS 75ML/H, SANDOSTATIN 10ML/H,PROTONIX 52ML/H. NPO. HOB ELEVATED. TURN AND REPOSITION Q2H. WILL CONTINUE TO MONITOR VITALS.
[2016-12-31] MEDS ORDERED: ALPRAZOLAM 0.5 MG TABLET ONE (21:55)
[2016-12-31] MEDS: ALPRAZOLAM 0.5 MG TABLET PO SCH (21:56)
[2016-12-31] MEDS ORDERED: PHYTONADIONE INJ 10 MG/1 ML AMPUL SQ ONE (22:00)
[2016-12-31] MEDS ORDERED: PHYTONADIONE INJ 10 MG/1 ML AMPUL SQ SCH (22:00)
[2016-12-31] MEDS ORDERED: PHYTONADIONE INJ 10 MG/1 ML AMPUL ONE (23:09)
--- NOTE | 2016-12-31 23:34 | NUR ---
DR THRASHER ORDERED VIT K NE [facility]ARM[facility]Y QUESTING ABOUT VIT K INR IS 1.06.I CALLED DR THRASHER, NO ANSWER.NOT CALL BACK. THEN I CALLED WARD HELPER DR VO , CLARIFY THE VIT K. DR VO ORDER OK TO GIVE VIT K.DR VO MADE AWARE INR. RESULT
[2017-01-01] VITALS (49 sets, daily range): BP systolic 118–149; BP diastolic 43–86
[2017-01-01] MEDS: IV NS 0.9% 1,000 ML IV PRN ×2 (00:52→12:15)
--- NOTE | 2017-01-01 03:39 | NUR ---
HEAD FILTER TANK TENDER HELPER. AM CARE. ORAL CARE, BED BATH GIVEN. LINEN CHANGED, REMAINING SAME ROOM AIR. SAT 98%. NO ACUTE DISTRESS NOTED. CLERGY MEMBER SHOWING NSR. IV RT HAND IVF NS 100ML/H, SANDOSTATIN 10ML/H, PROTONIX 52ML/H. HOB ELEVATED. NO ACTIVE BLEEDING NOTED, TURN AND REPOSITION QH. WILL CONTINUE TO MONITOR VITALS.
[2017-01-01] MEDS: Folic acid 1 MG in IV D5W 50 ML IV SCH (03:47)
[2017-01-01] MEDS: Thiamine 100 MG in IV D5W 50 ML IV SCH (04:01)
--- NOTE | 2017-01-01 05:42 | NUR ---
PIECE MARKER SMALL ARMS. PT REFUSED AM LAB. I AND MY PATIENT SCHEDULER EXPLAINED ABOUT BLOOD DRAW , STILL PT REFUSED.
--- NOTE | 2017-01-01 07:35 | NUR ---
PT REFUSING AM LABS. I EXPLAINED TO HIM THAT HIS BLOOD LEVELS WERE STILL LOW AFTER THE TRANSFUSIONS YESTERDAY AND THE MD WANTS TO SEE WHERE THE LEVELS ARE THIS MORNING. HE STATES THAT HE DOES NOT HAVE ENOUGH BLOOD, EVEN THOUGH WE SHOULD HIM WE ARE TAKING ONLY 4ML'S HALF OF A SYRINGE. HE UNDERSTANDS SITUATION AND REFUSES DESPITE.
[2017-01-01] MEDS: ALPRAZOLAM 0.5 MG TABLET PO SCH ×3 (08:38→11:24)
--- NOTE | 2017-01-01 08:46 | NUR ---
PT REFUSED AM XANAX HE STATES HE ONLY TAKES IT AT NIGHT. WILL CHECK WITH MD IF OKAY TO CHANGE TO NIGHT PRN.
[2017-01-01] MEDS ORDERED: PHYTONADIONE INJ 10 MG/1 ML AMPUL SQ ONE (10:00)
[2017-01-01] MEDS: LEVOFLOXACIN (500MG) 500 MG TABLET PO SCH (11:09)
--- NOTE | 2017-01-01 11:25 | NUR ---
PT CONTINUES TO REFUSE LABS. CONTINUALLY EXPLAINING TO HIM THE NEED EVERY TIME I GO IN THE ROOM. HE IS FEARFUL THAT HE DOES NOT HAVE ENOUGH BLOOD. SHOWED HIM THE 10CC SYRINGE AND STATE THAT IS ALL WE NEED AND WE ARE NOT ABLE TO TELL HIS BLOOD LEVELS WITHOUT TAKING A BLOOD SAMPLE. HE STILL REFUSES STATING HE DOES NOT HAVE ENOUGH BLOOD.
[2017-01-01] MEDS ORDERED: VITAMINS A AND D 56.7 GM TUBE TP PRN (11:30)
[2017-01-01] MEDS: PANTOPRAZOLE 80 MG in IV NS 0.9% 500 ML IV PRN (12:16)
[2017-01-01] MEDS: OCTREOTIDE 1,250 MCG in IV NS 0.9% 247.5 ML IV PRN (12:16)
--- NOTE | 2017-01-01 13:18 | NUR ---
DR. REYES ON THE UNIT SHE STATES TO GIVE THE VITAMIN K ONCE MORE TODAY (DOSE GIVEN LAST NIGHT). SHE ONLY WANTS 1 MORE DOSE FOR TODAY THEN
--- NOTE | 2017-01-01 13:35 | NUR ---
DR. FRITZ ON THE UNIT. HE IS AWARE THE PT IS REFUSING LABS. REVIEWS LAST LABS AND CURRENT BP. ORDERS FOR PT EVAL AND DOWNGRADE TO CARLIE.
[2017-01-01] MEDS: NEOMY SULF/BACITRAC ZN/POLY 15 GM TUBE TP SCH (13:39)
--- NOTE | 2017-01-01 15:24 | NUR ---
CONDOM CATHETER WOULD NOT STAY IN PLACE DUE TO RETRACTING. REMOVED AND PLACED URINALS AT BEDSIDE CALL LIGHT IN HAND.
[2017-01-01 15:32] LABS: BASOPHILS % (AUTO) 0.3 % (0.0-2.0); EOSINOPHILS % (AUTO) 0.9 % (0.0-6.0); HEMATOCRIT 22 % (39-51); HEMOGLOBIN 7.2 g/dL (13.5-17.5); LYMPHOCYTES % (AUTO) 19.7 % (20.0-44.0); MEAN CORPUSCULAR HEMOGLOBIN 26 PG (26.0-33.0); MEAN CORPUSCULAR HGB CONC 32 g/dl (31.0-36.0); MEAN CORPUSCULAR VOLUME 79 fL (80-96); MONOCYTES # (AUTO) 0.3 /CMM (0.1-1.30); MONOCYTES % (AUTO) 5.9 % (2.0-12.0); NEUTROPHILS # (AUTO) 3.6 /CMM (1.8-8.9); NEUTROPHILS % (AUTO) 73.2 % (43.0-81.0); PLATELET COUNT (AUTO) 79 /CMM (150-450); RDW COEFFICIENT OF VARIATION 21.5 (11.5-15.0); RED BLOOD CELL COUNT(AUTO) 2.81 MIL/uL (4.5-6.0); WHITE BLOOD COUNT (AUTO) 4.9 K/uL (4.3-11.0)
[2017-01-01 15:38] LABS: CALCIUM, SERUM 7.4 mg/dL (8.5-10.1); CREATININE 0.8 mg/dL (0.6-1.3); MAGNESIUM 1.7 mg/dL (1.8-2.4); PHOSPHORUS 2.8 mg/dL (2.5-4.9); POTASSIUM 3.8 mmol/L (3.5-5.1)
[2017-01-01 15:48] LABS: INR 1.37 (0.87-1.13)
[2017-01-01 15:54] LABS: EOSINOPHILS % (MANUAL) 1 % (0-4); LYMPHOCYTES % (MANUAL) 18 % (16-48); MONOCYTES % (MANUAL) 7 % (0-11.0); NEUTROPHILS % (MANUAL) 74 (42-76)
--- NOTE | 2017-01-01 16:57 | NUR ---
DR. FRITZ NOTIFIED ABOUT HGB AT 7.2 ORDERS FOR 1 UNIT PRBC.
--- NOTE | 2017-01-01 19:30 | NUR ---
SPORTS [employer] MEMBERSHIP ADVISORS: RECEIVED PT A/O X 3 WT ONGOING PRBC TRANSFUSION. ON R/A WT NO ACUTE DISTRESS, NO C/O PAIN, NO ADVERSE SIDE EFFECTS NOTED. SR ON MONITOR. AFEBRILE. CONTINUE ON PROTONIX AT 52ML/HR, NS AND SANDOSTATIN ON HOLD WHILE ON TRANSFUSION. NO S/S OF INFILTRATION ON IV SITE. NO ACTIVE BLEEDING AT THIS TIME. SAFETY PRECAUTION NOTED. WILL CONTINUE TO MONITOR.
[2017-01-01] MEDS: Magnesium 1GM/D5W 100ML PREMIX 100 ML IV SCH ×2 (20:12→21:15)
--- NOTE | 2017-01-01 20:30 | NUR ---
DENTAL CREAM MAKER: ONE UNIT PRBC TRANSFUSED WT NO ADVERSE SIDE EFFECTS. NO ACTIVE BLEEDING. WILL CONTINUE TO MONITOR.
[2017-01-02] VITALS (11 sets, daily range): BP systolic 116–138; BP diastolic 60–86
[2017-01-02] MEDS: PANTOPRAZOLE 80 MG in IV NS 0.9% 500 ML IV PRN ×2 (00:18→10:39)
[2017-01-02] MEDS: Thiamine 100 MG in IV D5W 50 ML IV SCH (02:33)
[2017-01-02] MEDS: Folic acid 1 MG in IV D5W 50 ML IV SCH (03:09)
--- NOTE | 2017-01-02 04:15 | NUR ---
SHARE DAIRY FARMER: PT REFUSED AM LABS X 3 IN SPITE OF EXPLANATION OF RISKS AND BENEFITS. TOLD COATER OPERATOR INSULATION BOARD TO COME BACK LATER.
--- NOTE | 2017-01-02 05:45 | NUR ---
SPINNING SUPERVISOR: REPORT GIVEN TO GUILLERMO JONES FOR TRANSFER TO TD ROOM 115-1.
--- NOTE | 2017-01-02 06:05 | NUR ---
SUPERVISOR SPECIALTY PLANT: PT TRANSFERRED TO TD FLOOR IN STABLE CONDITION. ALL NEEDS MET.
--- NOTE | 2017-01-02 06:42 | NUR ---
AUTO ENGINE MECHANIC NOTES RECEIVED PT IN BED, AWAKE, A/O X3. TELE READS SR AT 85. ON O2 VIA NC AT 2 LPM, NICOLE WELL. CHARITO MIDLINE AND LAC 20G, RUNNING PROTONIX AND SANDOSTATIN AND NS IVF. PT ABLE TO USE URINAL. WOUND AT POSTERIOR HEAD AND DARKENING SKIN AT BILATERAL LOWER LEGS. PT HAS LOTION AND EYEGLASSES ONLY BELONGINGS. PT DENIES PAIN AT THIS TIME. VSS. ALL NEED MET. HOB ELEVATED, SIDE RAILS X3, CALL LIGHT WITHIN REACH.
--- NOTE | 2017-01-02 08:00 | NUR ---
INITIAL CARLIE RN NOTE RCVD PT AWAKE AND ALERT, SHOWING NO S/O DISTRESS OR C/O PAIN AT THIS TIME. ON RA TOLERATING WELL. SR ON TELE. VOIDING TO URINAL. IV SITES C/D/I/PATENT. NO S/O INFILTRATION OR PHLEBITIS OBSERVED. IVF INFUSING. WILL CONTINUE TO MONITOR PT FOR SAFETY AND COMFORT. CALL LIGHT WITHIN REACH, BED IN LOW AND LOCKED POSITION.
[2017-01-02] MEDS: NEOMY SULF/BACITRAC ZN/POLY 15 GM TUBE TP SCH (08:53)
[2017-01-02] MEDS: IV NS 0.9% 1,000 ML IV PRN (08:58)
[2017-01-02 10:11] LABS: BASOPHILS % (AUTO) 0.2 % (0.0-2.0); EOSINOPHILS % (AUTO) 2.9 % (0.0-6.0); HEMATOCRIT 25 % (39-51); HEMOGLOBIN 8.1 g/dL (13.5-17.5); LYMPHOCYTES % (AUTO) 22.6 % (20.0-44.0); MEAN CORPUSCULAR HEMOGLOBIN 27 PG (26.0-33.0); MEAN CORPUSCULAR HGB CONC 33 g/dl (31.0-36.0); MEAN CORPUSCULAR VOLUME 81 fL (80-96); MONOCYTES % (AUTO) 9.2 % (2.0-12.0); NEUTROPHILS % (AUTO) 65.1 % (43.0-81.0); PLATELET COUNT (AUTO) 78 /CMM (150-450); RDW COEFFICIENT OF VARIATION 21.1 (11.5-15.0); RED BLOOD CELL COUNT(AUTO) 3.07 MIL/uL (4.5-6.0); WHITE BLOOD COUNT (AUTO) 5.4 K/uL (4.3-11.0)
[2017-01-02 10:12] LABS: EOSINOPHILS # (AUTO) 0.2 /CMM (0.0-0.7); LYMPHOCYTES # (AUTO) 1.2 /CMM (0.8-4.8); MONOCYTES # (AUTO) 0.5 /CMM (0.1-1.30); NEUTROPHILS # (AUTO) 3.5 /CMM (1.8-8.9)
[2017-01-02 10:17] LABS: CALCIUM, SERUM 7.5 mg/dL (8.5-10.1); CREATININE 0.8 mg/dL (0.6-1.3); MAGNESIUM 1.8 mg/dL (1.8-2.4); PHOSPHORUS 2.9 mg/dL (2.5-4.9); POTASSIUM 3.4 mmol/L (3.5-5.1)
[2017-01-02 10:39] LABS: INR 1.3 (0.87-1.13); PROTHROMBIN TIME 14.1 SECS (9.5-12.7)
[2017-01-02] MEDS: OCTREOTIDE 1,250 MCG in IV NS 0.9% 247.5 ML IV PRN (10:39)
--- NOTE | 2017-01-02 11:28 | NUR ---
TRANSFER RN NOTE PT'S CARE ENDORSED TO GUILLERMO SCHMIDT FOR CONTINUITY OF CARE.
[2017-01-02 11:50] LABS: BAND % (MANUAL) 1 % (0.0-5.0); EOSINOPHILS % (MANUAL) 1 % (0-4); LYMPHOCYTES % (MANUAL) 16 % (16-48); MONOCYTES % (MANUAL) 6 % (0-11.0); NEUTROPHILS % (MANUAL) 76 (42-76)
--- NOTE | 2017-01-02 12:00 | NUR ---
RN NOTES RECEIVED PATIENT IN BED ALERT, AWAKE, ORIENTED X3 WITH BREATHING NORMAL, EVEN AND UNLABORED. NO SOB NOTED. ON ROOM AIR, SATURATING WELL. NO ACUTE DISTRESS NOTED. TELE MONITOR REVEALS SR, HR=84. CHARITO MIDLINE AND LAC ARE PATENT AND INTACT, NO INFILTRATION NOTED, CONT ON PROTONIX AND SANDOSTATIN DRIP PER ORDER. BOWELS SOUND PRESENT. PULSES PRESENT. SAFETY MEASURE OBSERVED. ALL NEEDS ATTENDED. CALL LIGHT WITH IN REACH. WILL CONT TO MONITOR.
[2017-01-02] MEDS: LEVOFLOXACIN (500MG) 500 MG TABLET PO SCH (12:22)
[2017-01-02] MEDS: PANTOPRAZOLE 40 MG VIAL IV SCH (17:36)
[2017-01-02] MEDS ORDERED: POTASSIUM CHLORIDE 20 MEQ POWDER PACKET NG SCH ×2 (18:00)
[2017-01-02] MEDS ORDERED: POTASSIUM CHLORIDE 20 MEQ POWDER PACKET GT SCH (19:00)
[2017-01-02] MEDS ORDERED: POTASSIUM CHLORIDE 20 MEQ POWDER PACKET PO SCH (19:00)
--- NOTE | 2017-01-02 19:01 | NUR ---
RN NOTES PATIENT ENDORSED TO NEXT SHIFT IN STABLE CONDITION FOR CONTINUITY OF CARE. NO SIGNIFICANT CHANGES NOTED. KEPT CLEAN, DRY AND COMFORTABLE. ALL NEEDS ATTENDED. SAFETY MEASURE OBSERVED. CALL LIGHT WITH IN REACH. WILL CONT TO MONITOR.
--- NOTE | 2017-01-02 19:14 | NUR ---
RN NOTES POTASSIUM 20MEQ PO GIVEN PER PROTOCOL. SAMMIE FROM PHARMACY MADE AWARE.
--- NOTE | 2017-01-02 19:45 | NUR ---
TELE/RN NOTES RECEIVED PT. LYING IN BED. AWAKE, ALERT AND ORIENTED X3. BREATHING EVEN AND UNLABORED ON ROOM AIR. NO SOB, RESPIRATORY DISTRESS OR COMPLAINTS OF PAIN NOTED AT THIS TIME. PT. WITH EXTERNAL BAND MASTER PRESENT AND INTACT. CURRENT RHYTHM = SINUS RHYTHM HR 85. PT. WITH LEFT UPPER ARM MIDLINE PRESENT, PATENT AND INTACT. PT. WITH LEFT AC 20 GAUGE IV SALINE LOCK PRESENT, PATENT AND INTACT. NO S/S OF BLEEDING NOTED AT THIS TIME. PT. APPEARS COMFORTABLE AT THE MOMENT. BED IN LOWEST POSITION, CALL LIGHT WITHIN REACH, SIDE RAILS UP X2, WILL CONTINUE TO MONITOR.
[2017-01-03] VITALS: BP 138/77
[2017-01-03] MEDS: ALPRAZOLAM 0.5 MG TABLET PO PRN ×2 (01:36→21:02)
[2017-01-03] MEDS: Folic acid 1 MG in IV D5W 50 ML IV SCH (03:06)
[2017-01-03] MEDS: Thiamine 100 MG in IV D5W 50 ML IV SCH (03:53)
[2017-01-03 04:00] VITALS: BP 126/68
--- NOTE | 2017-01-03 06:23 | NUR ---
TELE/RN NOTES PT. LYING IN BED RESTING. BREATHING EVEN AND UNLABORED ON ROOM AIR. NO SOB, RESPIRATORY DISTRESS OR COMPLAINTS OF PAIN NOTED AT THIS TIME. PT. WITH EXTERNAL DIRECTOR OF LOSS PREVENTION PRESENT AND INTACT. CURRENT RHYTHM = SINUS RHYTHM HR 92. PT. WITH LEFT UPPER ARM MIDLINE PRESENT, PATENT AND INTACT. PT. WITH LEFT AC 20 GAUGE IV SALINE LOCK PRESENT, PATENT AND INTACT. NO S/S OF BLEEDING NOTED AT THIS TIME AND THROUGHOUT SHIFT. ALL PT. NEEDS MET. BED IN LOWEST POSITION, CALL LIGHT WITHIN REACH, SIDE RAILS UP X2, WILL ENDORSE TO DAYSHIFT NURSE FOR CONTINUITY OF CARE.
--- NOTE | 2017-01-03 07:15 | NUR ---
RN INITIAL NOTE REPORT RECEIVED FROM HAJA FOR AYSE. PT A/O X3 . PT ON RA. TELE SR. IV CHARITO MIDLINE #18, LAC # INTACT FLUSHED AND PATENT. ALL SAFETY MEASURES IN PLACE WILL CONTINUE TO MONITOR.
[2017-01-03 08:00] VITALS: BP 136/68
[2017-01-03] MEDS: PANTOPRAZOLE 40 MG VIAL IV SCH ×2 (08:03→21:02)
[2017-01-03] MEDS: NEOMY SULF/BACITRAC ZN/POLY 15 GM TUBE TP SCH (08:03)
--- NOTE | 2017-01-03 10:09 | NUR ---
RN NOTE PT REFUSED AM LABS. ATTEMPTED TO EDUCATE PT ON IMPORTANCE OF LAB LEVELS AND RESULTS. PT DECLINED. PT STATED "ALREADY DID IT YESTERDAY".
[2017-01-03] MEDS: LEVOFLOXACIN (500MG) 500 MG TABLET PO SCH (12:10)
[2017-01-03 14:28] LABS: BASOPHILS % (AUTO) 0.3 % (0.0-2.0); EOSINOPHILS # (AUTO) 0.1 /CMM (0.0-0.7); EOSINOPHILS % (AUTO) 3.1 % (0.0-6.0); HEMATOCRIT 27 % (39-51); HEMOGLOBIN 8.9 g/dL (13.5-17.5); LYMPHOCYTES # (AUTO) 0.9 /CMM (0.8-4.8); LYMPHOCYTES % (AUTO) 19.4 % (20.0-44.0); MEAN CORPUSCULAR HEMOGLOBIN 26 PG (26.0-33.0); MEAN CORPUSCULAR HGB CONC 32 g/dl (31.0-36.0); MEAN CORPUSCULAR VOLUME 81 fL (80-96); MONOCYTES # (AUTO) 0.4 /CMM (0.1-1.30); MONOCYTES % (AUTO) 8.9 % (2.0-12.0); NEUTROPHILS % (AUTO) 68.3 % (43.0-81.0); PLATELET COUNT (AUTO) 93 /CMM (150-450); RDW COEFFICIENT OF VARIATION 22.4 (11.5-15.0); RED BLOOD CELL COUNT(AUTO) 3.37 MIL/uL (4.5-6.0); WHITE BLOOD COUNT (AUTO) 4.4 K/uL (4.3-11.0)
[2017-01-03 14:33] LABS: CALCIUM, SERUM 7.6 mg/dL (8.5-10.1); CREATININE 0.9 mg/dL (0.6-1.3); MAGNESIUM 1.6 mg/dL (1.8-2.4); PHOSPHORUS 3.6 mg/dL (2.5-4.9); POTASSIUM 3.7 mmol/L (3.5-5.1)
[2017-01-03 14:57] LABS: INR 1.37 (0.87-1.13)
[2017-01-03 15:54] LABS: EOSINOPHILS % (MANUAL) 3 % (0-4); LYMPHOCYTES % (MANUAL) 21 % (16-48); MONOCYTES % (MANUAL) 5 % (0-11.0); NEUTROPHILS % (MANUAL) 71 (42-76)
[2017-01-03 16:00] VITALS: BP 131/73
--- NOTE | 2017-01-03 19:08 | NUR ---
RN CLOSING NOTE REPORT RECEIVED GIVEN TO RANDOLPH TERRELL RN FOR AYSE. PT A/O X2-3 WITH PERIODS OF CONFUSION. PT ON RA. PT MS. IV CHARITO MIDLINE #18, LAC # INTACT FLUSHED AND PATENT. ALL SAFETY MEASURES IN PLACE. ALL ORDERS CARRIED OUT. PT STABLE THROUGH OUT SHIFT.
[2017-01-03 20:00] VITALS: BP_SYST 112; BP_SYST 129; BP_DIAS 66; BP_DIAS 72
--- NOTE | 2017-01-03 20:42 | NUR ---
RN NOTES RECEIVED PATIENT IN BED WITH NO DISTRESS NOTED. BREATHING EVEN AND UNLABORED. NO COMPLAINT OF PAIN. ASKED FOR XANAX FOR ANXIETY VERBALIZED. ALERT AND ORIENTED WITH EPISODES OF CONFUSSION AND FORGETFULNESS. ABLE TO VERBALIZE NEEDS. WILL CONTNUE TO MONITOR
[2017-01-04] VITALS: BP_SYST 124; BP_SYST 130; BP_DIAS 68; BP_DIAS 82
[2017-01-04 03:54] VITALS: BP 99/55
--- NOTE | 2017-01-04 07:38 | NUR ---
RN INITIAL NOTES PT IS IN BED AWAKE, ALERT X3, RESTING COMFORTABLY. ON ROOM AIR SATURATING WELL. NO DISCOMFORT, NO RESPIRATORY DISTRESS NOTED. CHARITO MIDLINE, LAC- SL, FLUSHED AND PATENT, NO INFECTION NOTED. NO ACTIVE BLEEDING NOTED,WILL CONTINUE TO MONITOR. CALL LIGHT WITHIN REACH.
--- NOTE | 2017-01-04 07:39 | NUR ---
RN CLOSING NOTES AWAKE IN BED WITH DISTRESS NOTED. NO SIGNIFICANT CHANGE OF CONDITION. ALERT AND ORIENTED WITH CONFUSION. ENDORSED TO AM SHIFT FOR CONTINUITY OF CARE
[2017-01-04 08:00] VITALS: BP 118/63
[2017-01-04] MEDS ORDERED: THIAMINE HCL 100 MG TABLET PO SCH (09:00)
[2017-01-04] MEDS ORDERED: FOLIC ACID 1 MG TABLET PO SCH (09:00)
[2017-01-04] MEDS: PANTOPRAZOLE 40 MG VIAL IV SCH (09:10)
[2017-01-04] MEDS: NEOMY SULF/BACITRAC ZN/POLY 15 GM TUBE TP SCH (09:12)
[2017-01-04] MEDS ORDERED: MULT-331 PO (11:38)
[2017-01-04] MEDS ORDERED: PANT40TA2 PO (11:44)
[2017-01-04 12:25] LABS: BASOPHILS % (AUTO) 0.3 % (0.0-2.0); EOSINOPHILS # (AUTO) 0.2 /CMM (0.0-0.7); EOSINOPHILS % (AUTO) 3.5 % (0.0-6.0); HEMATOCRIT 28 % (39-51); HEMOGLOBIN 8.9 g/dL (13.5-17.5); LYMPHOCYTES # (AUTO) 1.3 /CMM (0.8-4.8); LYMPHOCYTES % (AUTO) 28.1 % (20.0-44.0); MEAN CORPUSCULAR HEMOGLOBIN 26 PG (26.0-33.0); MEAN CORPUSCULAR HGB CONC 32 g/dl (31.0-36.0); MEAN CORPUSCULAR VOLUME 81 fL (80-96); MONOCYTES # (AUTO) 0.4 /CMM (0.1-1.30); MONOCYTES % (AUTO) 8.9 % (2.0-12.0); NEUTROPHILS # (AUTO) 2.7 /CMM (1.8-8.9); NEUTROPHILS % (AUTO) 59.2 % (43.0-81.0); PLATELET COUNT (AUTO) 99 /CMM (150-450); RDW COEFFICIENT OF VARIATION 22.6 (11.5-15.0); RED BLOOD CELL COUNT(AUTO) 3.38 MIL/uL (4.5-6.0); WHITE BLOOD COUNT (AUTO) 4.6 K/uL (4.3-11.0)
[2017-01-04 12:30] LABS: CALCIUM, SERUM 7.7 mg/dL (8.5-10.1); CREATININE 0.8 mg/dL (0.6-1.3); MAGNESIUM 1.7 mg/dL (1.8-2.4); POTASSIUM 3.6 mmol/L (3.5-5.1)
[2017-01-04 12:38] LABS: EOSINOPHILS % (MANUAL) 4 % (0-4); LYMPHOCYTES % (MANUAL) 27 % (16-48); MONOCYTES % (MANUAL) 8 % (0-11.0); NEUTROPHILS % (MANUAL) 61 (42-76)
[2017-01-04] MEDS: LEVOFLOXACIN (500MG) 500 MG TABLET PO SCH (13:03)
== END 2017-01-04 14:50 | disposition home health service (06) | DRG 197 ==
LOC: ER 22:14 → ICU 12-31 00:35 → TELE-TD 01-02 06:06 → TELE1 01-02 10:58 → MEDSG1 01-03 09:49
PROVIDERS: ADMIT Internal Medicine; ATTEND Internal Medicine
PROC: 0DB68ZX Excision of Stomach, Via Natural or Artificial Opening Endoscopic, Diagnostic (ICD-10-PCS; principal; 2016-12-31 11:54)
PROC: 30233K1 Transfusion of Nonautologous Frozen Plasma into Peripheral Vein, Percutaneous Approach (ICD-10-PCS; principal; 2016-12-31 11:54)
PROC: 30233N1 Transfusion of Nonautologous Red Blood Cells into Peripheral Vein, Percutaneous Approach (ICD-10-PCS; principal; 2016-12-31 11:54)
PROC: 05H633Z Insertion of Infusion Device into Left Subclavian Vein, Percutaneous Approach (ICD-10-PCS; 2017-01-01)
DX: I86.4 Gastric varices (principal); E43 Unspecified severe protein-calorie malnutrition; D68.9 Coagulation defect, unspecified; E87.2 Acidosis; D69.2 Other nonthrombocytopenic purpura; R53.2 Functional quadriplegia; D69.59 Other secondary thrombocytopenia; D62 Acute posthemorrhagic anemia; K70.30 Alcoholic cirrhosis of liver without ascites; E66.9 Obesity, unspecified; E78.5 Hyperlipidemia, unspecified; F17.210 Nicotine dependence, cigarettes, uncomplicated; I10 Essential (primary) hypertension; K21.9 Gastro-esophageal reflux disease without esophagitis; J44.9 Chronic obstructive pulmonary disease, unspecified; Z87.898 Personal history of other specified conditions; F10.20 Alcohol dependence, uncomplicated; Y90.0 Blood alcohol level of less than 20 mg/100 ml; L98.8 Other specified disorders of the skin and subcutaneous tissue; Z68.33 Body mass index [BMI] 33.0-33.9, adult; K29.70 Gastritis, unspecified, without bleeding; G31.2 Degeneration of nervous system due to alcohol; S01.00XA Unspecified open wound of scalp, initial encounter; Y92.009 Unspecified place in unspecified non-institutional (private) residence as the place of occurrence of the external cause; Z85.841 Personal history of malignant neoplasm of brain
CPT/HCPCS: 36415; 36569; 70450-TC; 71010-TC; 76700-TC; 80048-TC; 80076-TC; 80305; 81000-TC; 82105; 82272-TC; 82962-TC; 83605-TC; 83735-TC; 84100-TC; 84484-TC; 85025-TC; 85027-TC; 85610-TC; 86850-TC; 86921-TC; 87040-TC; 87081-TC; 87086-TC; 88305-TC; 88313-TC; 88342; 97001-TC; 97116-TC; 97530-TC; A4216; A4217; A4349; A4606; A6403; C9113; G0480; J2354; J2405; J3370; J3411; J3430; J3475; J3490; J7030; J7040; J7042; J7050; J7060; P9016-BL; P9017-BL; Z7610